=== PATIENT | female | born 1985 ===

== ENCOUNTER 2016-11-28 10:15 | Emergency (ER) | payer BC, MEDICAID, OTHER ==
[2016-11-28 10:16] VITALS: BMI 31.8
[2016-11-28 10:18] VITALS: BP 121/83; PULSE 76; RESP 18; TEMP 98.6; O2SAT 98
[2016-11-28] MEDS ORDERED: Naproxen 550 mg Tab PO STA (10:42)
--- NOTE | 2016-11-28 10:42 | C.PDOC ---
History Of Present Illness 30 yr old female presents to the ER with complaints of tooth ache in the right right upper molar for the past 3 days. Patient reports she has multiple cavities in the area and has not tried any medications for the pain. Patient denies fever, throat swelling, vomiting, neck pain, weakness or numbness. Time Seen by Provider: 11/28/16 10:33 Chief Complaint (Nursing): Dental Pain History Per: Patient History/Exam Limitations: no limitations Onset/Duration Of Symptoms: Days (3) Current Symptoms Are (Timing): Still Present Past Medical History Reviewed: Historical Data, Nursing Documentation, Vital Signs Vital Signs: Last Vital Signs Temp 98.6 F 11/28/16 10:18 Pulse 76 11/28/16 10:18 Resp 18 11/28/16 10:18 BP 121/83 11/28/16 10:18 Pulse Ox 98 11/28/16 10:55 - Medical History PMH: Anxiety Family History: States: No Known Family Hx - Social History Hx Alcohol Use: Yes Hx Substance Use: No Review Of Systems Except As Marked, All Systems Reviewed And Found Negative. Constitutional: Negative for: Fever ENT: Positive for: Other ((+) Right upper molar pain ). Negative for: Throat Swelling Gastrointestinal: Negative for: Vomiting Musculoskeletal: Negative for: Neck Pain Neurological: Negative for: Weakness, Numbness Physical Exam - Physical Exam Appears: Well, Non-toxic, No Acute Distress Skin: Warm, Dry, Other ((+) Moderate swelling to the right cheek. ) Head: Atraumatic, Normacephalic Oral Mucosa: Moist Teeth: Other ((+) Tenderness & Temporary fillings noted to the #2 and #3. ) Gingiva: Swelling (with purulent drainag bucal rt upper 2nd molor), Tender Throat: Normal, No Erythema, No Exudate Neck: Normal, Normal ROM, Supple Neurological/Psych: Oriented x3, Normal Speech, Normal Motor ED Course And Treatment O2 Sat by Pulse Oximetry: 98 Medical Decision Making Medical Decision Making: PLAN: * Amoxicillin PO * Naproxen PO dentist philip Disposition Counseled Patient/Family Regarding: Need For Followup - Disposition Disposition: HOME/ ROUTINE Disposition Time: 10:40 Condition: GOOD Additional Instructions: follow up with dentist PHILIP Prescriptions: Amoxicillin [Amoxil 500 mg Cap] 1 cap PO TID #21 cap Naproxen [Naprosyn] 1 tab PO BID PRN #25 tab PRN Reason: Pain Instructions: Dental Abscess (ED) - Clinical Impression Clinical Impression: Dental abscess - Scribe Statement The provider has reviewed the documentation as recorded by the Scribe Adry Stinson Provider Attestation: All medical record entries made by the Scribe were at my direction and personally dictated by me. I have reviewed the chart and agree that the record accurately reflects my personal performance of the history, physical exam, medical decision making, and the department course for this patient. I have also personally directed, reviewed, and agree with the discharge instructions and disposition.
[2016-11-28] MEDS ORDERED: Naproxen 550 mg Tab PO ONE (10:52)
== END 2016-11-28 11:27 | disposition home or self-care (01) ==
LOC: C.ER 10:15
DX: K04.7 Periapical abscess without sinus (principal)

== ENCOUNTER 2017-01-18 09:35 | Inpatient (IN) | payer OTHER ==
[2017-01-18 09:36] VITALS: BMI 31.8
[2017-01-18] MEDS ORDERED: Sodium Chloride 0.9% 1,000 ML IV STA (10:19)
[2017-01-18] MEDS ORDERED: Sodium Chloride 0.9% 1,000 ML ONE (10:29)
[2017-01-18 10:36] LABS: BASO # 0.1 K/uL (0.0-0.2); EOS # 0.1 K/uL (0.0-0.7); EOS % 0.8 % (0.0-4.0); LYMPH # 1.6 K/uL (1.0-4.3); LYMPH % 15.7 % (20.0-40.0); MEAN CELL VOLUME 94.7 fL (81.0-99.0); MEAN CORPUSCULAR HEMOGLOBIN 31.4 pg (27.0-31.0); MEAN CORPUSCULAR HGB CONC 33.1 g/dL (33.0-37.0); MONO % 9.8 % (0.0-10.0); NEUT # 7.6 K/uL (1.8-7.0); NEUT % 72.7 % (50.0-75.0); NRBC % 0.1 % (0.0-2.0); RBC 4.15 Mil/uL (3.80-5.20); RED CELL DISTRIBUTION WIDTH 13.8 % (11.5-14.5); WHITE BLOOD COUNT 10.5 K/uL (4.8-10.8)
[2017-01-18 10:44] LABS: ALB/GLOB RATIO 1.1 (1.0-2.1); ALT/SGPT 90 U/L (9-52); AST/SGOT 142 U/L (14-36); BLOOD UREA NITROGEN 5 mg/dL (7-17); GFR AFRICAN-AMERICAN > 60; GFR NON-AFRICAN AMERICAN > 60; LIPASE 113 U/L (23-300)
[2017-01-18 10:45] LABS: CALCIUM 9.2 mg/dl (8.6-10.4)
[2017-01-18] MEDS ORDERED: POTASSIUM CHLORIDE IV ONE (11:30)
--- NOTE | 2017-01-18 11:41 | C.PDOC ---
History Of Present Illness 31-year-old female, PMHx includes Anxiety and EtOH Abuse, presents to the emergency department with complaints of abdominal pain associated with non- bloody/non-bilious vomiting since last night. Denies fevers, chills, symptoms , change in bowel habits, or any other associated symptoms. No other complaints at this time. Time Seen by Provider: 01/18/17 09:53 Chief Complaint (Nursing): Abdominal Pain History Per: Patient History/Exam Limitations: no limitations Onset/Duration Of Symptoms: Days Current Symptoms Are (Timing): Still Present Severity: Moderate Past Medical History Reviewed: Historical Data, Nursing Documentation, Vital Signs Vital Signs: Last Vital Signs Temp 97.4 F L 01/18/17 15:44 Pulse 51 L 01/18/17 18:17 Resp 20 01/18/17 18:17 BP 113/73 01/18/17 18:17 Pulse Ox 100 01/18/17 18:45 - Medical History PMH: Anxiety Family History: States: No Known Family Hx - Social History Hx Alcohol Use: Yes Hx Substance Use: No - Immunization History Hx Tetanus Toxoid Vaccination: No Hx Influenza Vaccination: No Hx Pneumococcal Vaccination: No Review Of Systems Except As Marked, All Systems Reviewed And Found Negative. Constitutional: Negative for: Fever, Chills Cardiovascular: Negative for: Chest Pain, Palpitations Gastrointestinal: Positive for: Nausea, Vomiting, Abdominal Pain. Negative for : Diarrhea, Constipation Genitourinary: Negative for: Dysuria, Frequency, Vaginal Discharge, Vaginal Bleeding Musculoskeletal: Negative for: Back Pain Physical Exam - Physical Exam Appears: Non-toxic, No Acute Distress Skin: Warm, Dry, No Rash Head: Atraumatic, Normacephalic Eye(s): bilateral: Normal Inspection, PERRL, EOMI Nose: Normal Oral Mucosa: Moist Lips: Normal Appearing Neck: Normal ROM Cardiovascular: Rhythm Regular, No Murmur Respiratory: Normal Breath Sounds, No Accessory Muscle Use Gastrointestinal/Abdominal: Soft, Tenderness (RUQ), No Guarding, No Rebound Extremity: Normal ROM Neurological/Psych: Oriented x3, Normal Speech ED Course And Treatment - Laboratory Results Result Diagrams: 01/18/17 10:28 01/18/17 10:28 O2 Sat by Pulse Oximetry: 100 - CT Scan/US Abd & Pelvis CT Other Rad Studies (CT/US): Read By Radiologist, Radiology Report Reviewed CT/US Interpretation: FINDINGS: LOWER THORAX: There is patchy ground-glass attenuation in both lungs. LIVER: The liver is enlarged and there is diffuse low-attenuation. No gross lesion or ductal dilatation. GALLBLADDER AND BILE DUCTS: There are no calcified gallstones. PANCREAS: The pancreas is normal in size and there is homogeneous enhancement without ductal dilatation or focal mass. SPLEEN: The spleen is normal in size without focal lesion. ADRENALS: Both adrenal glands are normal in size without discrete nodule. KIDNEYS AND URETERS: Both kidneys are normal in size and there is homogeneous enhancement without hydronephrosis or mass. VASCULATURE: The aorta is normal in caliber. BOWEL: The small bowel loops are normal in caliber. There is apparent mild diffuse circumferential mural thickening in the colon. No bowel dilatation or obstruction. There are occasional diverticula in the colon. APPENDIX: Normal appendix. PERITONEUM: No free fluid. No free air. LYMPH NODES: No enlarged lymph nodes. BLADDER: Normal in appearance. REPRODUCTIVE: The uterus is normal in size. No adnexal masses. BONES: No acute fracture. Within normal limits for the patient's age. OTHER FINDINGS: None. IMPRESSION: 1. Evaluation of the colon is limited in the absence of oral contrast. Apparent mild diffuse circumferential mural thickening in the colon is nonspecific and could be related to underdistention however acute nonspecific infectious/ inflammatory colitis is also a differential consideration. No evidence of bowel obstruction. 2. Mild hepatomegaly and hepatic steatosis. 3. Patchy ground-glass attenuation in the lung bases is also nonspecific and could be related to nonspecific infection/inflammation. Abdomen ultrasound Other Rad Studies (CT/US): Read By Radiologist, Radiology Report Reviewed CT/US Interpretation: FINDINGS: LIVER: Measures 19.7 cm in length. Echogenic liver may be seen in setting of hepatic parenchymal disease or fatty infiltration. No focal hepatic mass identified. The main portal vein appears patent with normal directional flow. No intrahepatic bile duct dilatation. GALLBLADDER: No gallstones. No gallbladder wall thickening or pericholecystic edema. Negative sonographic Coker's sign as assessed by the telehealth nurse educator. COMMON BILE DUCT: Measures 4 mm. PANCREAS: Not well-visualized. RIGHT KIDNEY : Measures 10.8 x 3.8 x 4.7 cm. No obstructing calculus or hydronephrosis identified. AORTA: Limited visualization appears grossly unremarkable. IVC: Limited visualization appears grossly unremarkable. OTHER FINDINGS: None . IMPRESSION: Hepatomegaly. Echogenic liver may be seen in setting of hepatic parenchymal disease or fatty infiltration. Progress Note: Patient was given multiple doses of pain medications, and Zofran. Patient states that her symptoms still persist. Pt's potassium level was found to be low, and was given potassium IV, and ordered blood work again. Repeat blood work shows potassium level improved to 3.3 Patient was also found to be bradycardic. EKG was ordered. Heart rate improved to 52. Pt still states that she has nausea, and abdominal pain. Spoke with Dr. Tan who accepted patient for observation. Disposition - Disposition Disposition: HOSPITALIZED Disposition Time: 18:48 Condition: FAIR - Clinical Impression Clinical Impression: Abdominal pain, Vomiting, Hypokalemia, Bradycardia - PA / CULTURAL CENTRE MANAGER / Resident Statement MD/DO has reviewed & agrees with the documentation as recorded. - Scribe Statement The provider has reviewed the documentation as recorded by the Scribe (Veronica Alston) All medical record entries made by the Scribe were at my direction and personally dictated by me. I have reviewed the chart and agree that the record accurately reflects my personal performance of the history, physical exam, medical decision making, and the department course for this patient. I have also personally directed, reviewed, and agree with the discharge instructions and disposition. Decision To Admit - Pt Status Changed To: Hospital Disposition Of: Observation - . Bed Request Type: Regular Admitting Physician: Major Tan Patient Diagnosis: Abdominal pain, Vomiting, Hypokalemia, Bradycardia
[2017-01-18] MEDS ORDERED: Morphine 4 MG/ML VIAL ONE ×2 (11:53→17:09)
--- NOTE | 2017-01-18 12:45 | US ---
HISTORY: upper abd pain/vomiting COMPARISON: None available. TECHNIQUE: Sonographic evaluation of the right upper quadrant of the abdomen. FINDINGS: LIVER: Measures 19.7 cm in length. Echogenic liver may be seen in setting of hepatic parenchymal disease or fatty infiltration. No focal hepatic mass identified. The main portal vein appears patent with normal directional flow. No intrahepatic bile duct dilatation. GALLBLADDER: No gallstones. No gallbladder wall thickening or pericholecystic edema. Negative sonographic Coker's sign as assessed by the cook pickled meat. COMMON BILE DUCT: Measures 4 mm. PANCREAS: Not well-visualized. RIGHT KIDNEY: Measures 10.8 x 3.8 x 4.7 cm. No obstructing calculus or hydronephrosis identified. AORTA: Limited visualization appears grossly unremarkable. IVC: Limited visualization appears grossly unremarkable. OTHER FINDINGS: None . IMPRESSION: Hepatomegaly. Echogenic liver may be seen in setting of hepatic parenchymal disease or fatty infiltration.
[2017-01-18 12:53] LABS: HCG,QUALITATIVE URINE NEGATIVE (NEGATIVE)
[2017-01-18 12:58] LABS: SQUAMOUS EPITHIAL 1 /hpf (0-5); URINE BILIRUBIN NEGATIVE (NEGATIVE); URINE BLOOD NEGATIVE (NEGATIVE); URINE CLARITY Clear (Clear); URINE COLOR Yellow (YELLOW); URINE GLUCOSE (UA) 1+ mg/dL (Normal); URINE LEUKOCYTE ESTERASE NEG Leu/uL (Negative); URINE NITRATE NEGATIVE (NEGATIVE); URINE PROTEIN NEGATIVE (NEGATIVE); URINE UROBILINOGEN NORMAL mg/dL (0.2-1.0)
[2017-01-18 13:07] LABS: BENZODIAZEPINES, UR NEGATIVE (NEGATIVE)
[2017-01-18 13:09] LABS: BARBITURATES, UR NEGATIVE (NEGATIVE)
[2017-01-18] MEDS ORDERED: Iohexol 240 (50 ml) PO STA (13:21)
[2017-01-18 13:22] LABS: OPIATES, UR POSITIVE (NEGATIVE); PHENCYCLIDINE, UR POSITIVE (NEGATIVE)
[2017-01-18] MEDS ORDERED: Iohexol 240 (50 ml) ONE (14:16)
[2017-01-18] MEDS ORDERED: Iohexol 300 100 ML IJ ONE (17:00)
--- NOTE | 2017-01-18 18:05 | CT ---
PROCEDURE: CT Abdomen and Pelvis with contrast HISTORY: right abdominal pain/vomiting/hypokalemia COMPARISON: None. TECHNIQUE: CT scan of the abdomen and pelvis was performed after administration of intravenous contrast. Oral contrast was administered. Coronal and sagittal reformatted images were obtained. Contrast dose: 100 mL Omnipaque 300 Radiation dose: Total exam DLP = 1039.22 mGy-cm. This CT exam was performed using one or more of the following dose reduction techniques: Automated exposure control, adjustment of the mA and/or kV according to patient size, and/or use of iterative reconstruction technique. FINDINGS: LOWER THORAX: There is patchy ground-glass attenuation in both lungs. LIVER: The liver is enlarged and there is diffuse low-attenuation. No gross lesion or ductal dilatation. GALLBLADDER AND BILE DUCTS: There are no calcified gallstones. PANCREAS: The pancreas is normal in size and there is homogeneous enhancement without ductal dilatation or focal mass. SPLEEN: The spleen is normal in size without focal lesion. ADRENALS: Both adrenal glands are normal in size without discrete nodule. KIDNEYS AND URETERS: Both kidneys are normal in size and there is homogeneous enhancement without hydronephrosis or mass. VASCULATURE: The aorta is normal in caliber. BOWEL: The small bowel loops are normal in caliber. There is apparent mild diffuse circumferential mural thickening in the colon. No bowel dilatation or obstruction. There are occasional diverticula in the colon. APPENDIX: Normal appendix. PERITONEUM: No free fluid. No free air. LYMPH NODES: No enlarged lymph nodes. BLADDER: Normal in appearance. REPRODUCTIVE: The uterus is normal in size. No adnexal masses. BONES: No acute fracture. Within normal limits for the patient's age. OTHER FINDINGS: None. IMPRESSION: 1. Evaluation of the colon is limited in the absence of oral contrast. Apparent mild diffuse circumferential mural thickening in the colon is nonspecific and could be related to underdistention however acute nonspecific infectious/inflammatory colitis is also a differential consideration. No evidence of bowel obstruction. 2. Mild hepatomegaly and hepatic steatosis. 3. Patchy ground-glass attenuation in the lung bases is also nonspecific and could be related to nonspecific infection/inflammation.
[2017-01-18 18:26] LABS: VENOUS BLOOD GAS BASE EXCESS 3.5 mmol/L (0.0-2.0); VENOUS BLOOD GAS PCO2 57 mmHg (40-60); VENOUS BLOOD GAS PO2 19 mm/Hg (30-55); VENOUS BLOOD PH 7.34 (7.32-7.43)
--- NOTE | 2017-01-18 19:03 | CP.PCM.HP ---
<Vicky Espinoza - Last Filed: 01/18/17 20:50> History of Present Illness - History of Present Illness History of Present Illness: Medicine Note CC: Abdominal pain, nausea and vomiting HPI: 31 F with PMHx of pancreatitis and IBS, presents to ED with abdominal pain , nausea and vomiting x 2 days. Patient reports she has IBS and her normal bowel movements are loose stools. Patient reports she started have right sided abdominal pain that feels sharp in nature and does not radiate. She has unable to tolerate anything by mouth. She was hospitalized a few weeks ago for similar symptoms. Admitted to abdominal pain, n/v/ and diarrhea. Denied any sick contacts, recent travel. Denied fever, chills, headache, blurry vision chest pain, SOB, or urinary symptoms. PMHx: pancreatitis and IBS (diagnosed 2010) PSHx: Denied Meds: Denied All: NKDA SHx: Has been smoking 5-10 cigarrettes for 15 years, drinks one 6 pack of beers 3-4 times a week, denied drug use (despite UDS) FHx: Mother: DM Father: Hx CABG PMD: Denied Present on Admission - Present on Admission Any Indicators Present on Admission: No Review of Systems - Constitutional Constitutional: absent: Excessive Sweating - EENT Eyes: absent: Loss of Vision Ears: absent: Dizziness Nose/Mouth/Throat: absent: Neck Pain - Cardiovascular Cardiovascular: absent: Chest Pain, Chest Pain at Rest - Respiratory Respiratory: absent: Cough, Dyspnea - Gastrointestinal Gastrointestinal: Abdominal Pain, Diarrhea, Nausea, Vomiting - Genitourinary Genitourinary: absent: Dysuria, Hematuria - Musculoskeletal Musculoskeletal: absent: Back Pain, Tingling - Integumentary Integumentary: absent: Sores, Striae - Neurological Neurological: absent: Syncope, Weakness - Endocrine Endocrine: absent: Polydipsia, Polyphagia Past Patient History - Infectious Disease Hx of Infectious Diseases: None - Past Medical History & Family History Past Medical History?: No - Past Social History Smoking Status: Light Smoker < 10 Cigarettes Daily - CARDIAC Hx Hypertension: No - PULMONARY Hx Tuberculosis: No - NEUROLOGICAL Hx Seizures: No - HEMATOLOGICAL/ONCOLOGICAL Hx Human Immunodeficiency Virus (HIV): No - MUSCULOSKELETAL/RHEUMATOLOGICAL Hx Falls: No - GENITOURINARY/GYNECOLOGICAL Hx Sexually Transmitted Disorders: No - PSYCHIATRIC Hx Anxiety: Yes Hx Substance Use: No - SURGICAL HISTORY Hx Surgeries: No - ANESTHESIA Hx Anesthesia: No Meds Allergies/Adverse Reactions: Allergies Allergy/AdvReac Type Severity Reaction Status Date / Time No Known Allergies Allergy Verified 01/18/17 09:47 Physical Exam - Constitutional Appears: No Acute Distress - Head Exam Head Exam: NORMAL INSPECTION, NORMOCEPHALIC - Eye Exam Eye Exam: EOMI, Normal appearance, PERRL Pupil Exam: NORMAL ACCOMODATION - ENT Exam ENT Exam: Mucous Membranes Moist - Neck Exam Neck exam: Positive for: Normal Inspection - Respiratory Exam Respiratory Exam: Clear to Auscultation Bilateral, NORMAL BREATHING PATTERN. absent: Wheezes - Cardiovascular Exam Cardiovascular Exam: REGULAR RHYTHM, RRR - GI/Abdominal Exam GI & Abdominal Exam: Normal Bowel Sounds, Soft, Tenderness (TTP right sided ). absent: Distended - Extremities Exam Extremities exam: Positive for: normal inspection. Negative for: pedal edema, tenderness, pedal pulses present - Neurological Exam Neurological exam: Alert, CN II-XII Intact, Oriented x3 - Skin Skin Exam: Dry, Intact, Normal Color, Warm Results - Vital Signs Recent Vital Signs: Last Vital Signs Temp 97.4 F L 01/18/17 15:44 Pulse 51 L 01/18/17 18:17 Resp 20 01/18/17 18:17 BP 113/73 01/18/17 18:17 Pulse Ox 100 01/18/17 18:49 - Labs Result Diagrams: 01/18/17 10:28 01/18/17 10:28 Assessment & Plan - Assessment and Plan (Free Text) Assessment: 31 F with PMHx of pancreatitis and IBS, presents to ED with abdominal pain, nausea and vomiting x 2 days. Plan: Abdominal Pain * Afebrile, no leukocytosis * CT AB & Pelvis w/ IV & PO contrast: 1. Evaluation of the colon is limited in the absence of oral contrast. Apparent mild diffuse circumferential mural thickening in the colon is nonspecific and could be related to underdistention however acute nonspecific infectious/inflammatory colitis is also a differential consideration. No evidence of bowel obstruction. 2. Mild hepatomegaly and hepatic steatosis. 3. Patchy ground-glass attenuation in the lung bases is also nonspecific and could be related to nonspecific infection/ inflammation. * Abdominal US: Hepatomegaly. Echogenic liver may be seen in setting of hepatic parenchymal disease or fatty infiltration. * Hx of IBS * Cipro and Flagyl started 01/18/17 * Gastro Consult: Dr. Otero- help appreciated * Toradol PRN and Morphine PRN for pain control Bradycardia * HR - 50s in ED * Started on IVF-NS, responded. HR -60s * Monitored on Telemetry Hypokalemia * 2.9 on admission * Give 40meq of K in the ED * Started on NS with Potassium supplement @ 100cc/hr * F/U am labs Hx IBS Tobacco Use Disorder * Smoking Cessation * Nicotine patch Drug Use Disorder * + UDS- Opiates, Cocaine, Cannabinoids Alcohol Use Disorder Prophylactic Measures * GI PPX: Protonix 40mg PO daily * DVT PPX: SCDs, Lovenox 40 SC daily * NPO * Zofran PRN DW Olga Marion DO, PGY-1 <Goran Abraham - Last Filed: 01/19/17 05:06> Results - Vital Signs Recent Vital Signs: Last Vital Signs Temp 98.4 F 01/19/17 04:00 Pulse 73 01/19/17 04:00 Resp 20 01/19/17 04:00 BP 110/73 01/19/17 04:00 Pulse Ox 96 01/18/17 23:40 - Labs Result Diagrams: 01/18/17 10:28 01/18/17 10:28 Assessment & Plan - Date & Time Date: 01/19/17 (I have seen and examined the patient. I agree with the findings and plan of care as documented by Dr. Espinoza. Patient with abdominal pain. CT shows colitis. GI consult. Symptomatic treatment. IVF. Also with bradycardia. Monitor on tele. Monitor for acute changes.) Time: 05:05 Attending/Attestation - Attestation I have personally seen and examined this patient.: Yes I have fully participated in the care of the patient.: Yes I have reviewed all pertinent clinical information: Yes
[2017-01-18] MEDS: Ciprofloxacin 200mg/100ml D5W 100 ML IVPB SCH (21:45)
[2017-01-18] MEDS: metroNIDAZOLE IV 500 mg/100 ml 500 MG/100 ML BAG IVPB SCH (23:28)
[2017-01-19] MEDS: metroNIDAZOLE IV 500 mg/100 ml 500 MG/100 ML BAG IVPB SCH ×3 (06:00→23:25)
[2017-01-19 07:49] LABS: BASO # 0.1 K/uL (0.0-0.2); BASO % 0.6 % (0.0-2.0); EOS # 0.2 K/uL (0.0-0.7); EOS % 2.1 % (0.0-4.0); HEMOGLOBIN 12.4 g/dL (11.0-16.0); LYMPH # 1.7 K/uL (1.0-4.3); LYMPH % 18.2 % (20.0-40.0); MEAN CELL VOLUME 95.8 fL (81.0-99.0); MEAN CORPUSCULAR HEMOGLOBIN 31.7 pg (27.0-31.0); MEAN CORPUSCULAR HGB CONC 33.1 g/dL (33.0-37.0); MEAN PLATELET VOLUME 10.4 fL (7.2-11.7); MONO # 0.7 K/uL (0.0-0.8); MONO % 7.2 % (0.0-10.0); NEUT # 6.5 K/uL (1.8-7.0); NEUT % 71.9 % (50.0-75.0); NRBC % 0.1 % (0.0-2.0); RBC 3.91 Mil/uL (3.80-5.20); RED CELL DISTRIBUTION WIDTH 13.8 % (11.5-14.5); WHITE BLOOD COUNT 9.1 K/uL (4.8-10.8)
[2017-01-19 08:03] LABS: ALBUMIN 3.3 g/dL (3.5-5.0)
[2017-01-19 08:06] LABS: AST/SGOT 115 U/L (14-36); GFR AFRICAN-AMERICAN > 60; GFR NON-AFRICAN AMERICAN > 60
[2017-01-19 08:07] LABS: ALT/SGPT 72 U/L (9-52); BLOOD UREA NITROGEN 6 mg/dL (7-17); CALCIUM 8.4 mg/dl (8.6-10.4); MAGNESIUM 1.6 mg/dL (1.6-2.3)
[2017-01-19] MEDS: Ciprofloxacin 200mg/100ml D5W 100 ML IVPB SCH ×2 (09:43→21:46)
[2017-01-19] MEDS: Pantoprazole 40 mg EC Tab PO SCH (09:44)
[2017-01-19] MEDS: Enoxaparin 40 mg Syringe SC SCH (09:44)
[2017-01-19] MEDS ORDERED: Potassium Chloride 20 mEq ER Tab PO ONE (10:13)
[2017-01-19] MEDS ORDERED: Potassium Chloride 20 mEq/15 ml LIQ UD PO ONE (11:59)
[2017-01-19] MEDS: Sodium Chloride 0.9% 1,000 ML IV SCH ×2 (12:13→21:55)
--- NOTE | 2017-01-19 14:13 | CP.PCM.CON ---
History of Present Illness - History of Present Illness History of Present Illness: ASked to see pt for GI Service consult for vomiting. Fiancee is present. Pt reports 2 days of vague abdom pain, body pain, and nausea and vomiting,. Stools are small amount- soft. Sl fever,.PMH: Pancreatitis due to etoh, and IBS. CT-shows possible colitis. Review of Systems - Constitutional Constitutional: Fever, Headache. absent: Lethargy, Weight Loss - EENT Eyes: absent: Diplopia Nose/Mouth/Throat: absent: Dysphagia - Cardiovascular Cardiovascular: absent: Dyspnea, Edema - Respiratory Respiratory: absent: Hemoptysis, Wheezing - Gastrointestinal Gastrointestinal: Abdominal Pain, Diarrhea, Nausea, Vomiting. absent: Hematemesis, Hematochezia, Melena - Musculoskeletal Musculoskeletal: absent: Muscle Cramps, Muscle Weakness, Myalgias - Integumentary Integumentary: absent: Rash, Jaundice - Neurological Neurological: absent: Convulsions, Focal Weakness Past Patient History - Infectious Disease Hx of Infectious Diseases: None - Past Medical History & Family History Past Medical History?: No - Past Social History Smoking Status: Light Smoker < 10 Cigarettes Daily - CARDIAC Hx Hypertension: No - PULMONARY Hx Tuberculosis: No - NEUROLOGICAL Hx Seizures: No - HEMATOLOGICAL/ONCOLOGICAL Hx Human Immunodeficiency Virus (HIV): No - MUSCULOSKELETAL/RHEUMATOLOGICAL Hx Falls: No - GENITOURINARY/GYNECOLOGICAL Hx Sexually Transmitted Disorders: No - PSYCHIATRIC Hx Substance Use: Yes - SURGICAL HISTORY Hx Surgeries: No Other/Comment: .2007 - ANESTHESIA Hx Anesthesia: Yes Hx Anesthesia Reactions: No Hx Malignant Hyperthermia: No Has any member of the family had a problem w/ anesthesia?: No Meds Allergies/Adverse Reactions: Allergies Allergy/AdvReac Type Severity Reaction Status Date / Time No Known Allergies Allergy Verified 01/18/17 09:47 - Medications Medications: Current Medications Enoxaparin Sodium (Lovenox) 40 mg SC DAILY [facility] Last Admin: 01/19/17 09:44 Dose: 40 mg Potassium Chloride 40 meq/ (Sodium Chloride) 1,020 mls @ 100 mls/hr IV .[id number] [facility] Last Admin: 01/18/17 20:15 Dose: 100 mls/hr Ciprofloxacin (Cipro 200mg/100ml D5w) 100 mls @ 67 mls/hr IVPB Q12H [facility] Last Admin: 01/19/17 09:43 Dose: 67 mls/hr Metronidazole (Flagyl) 500 mg in 100 mls @ 100 mls/hr IVPB Q8 [facility] Last Admin: 01/19/17 06:00 Dose: 100 mls/hr Sodium Chloride (Sodium Chloride 0.9%) 1,000 mls @ 100 mls/hr IV .Q10H [facility] Last Admin: 01/19/17 12:13 Dose: 100 mls/hr Potassium Chloride (Potassium Chloride 20 Meq/100 Ml) 20 meq in 100 mls @ 50 mls/hr IVPB ONCE ONE Stop: 01/19/17 14:59 Last Admin: 01/19/17 12:12 Dose: 50 mls/hr Ketorolac Tromethamine (Toradol) 30 mg IVP Q6 PRN PRN Reason: Pain, moderate (4-7) Morphine Sulfate (Morphine) 1 mg IVP Q4H PRN PRN Reason: Pain, severe (8-10) Last Admin: 01/19/17 11:03 Dose: 1 mg Nicotine (Nicoderm Cq) 1 patch TD DAILY [facility] Last Admin: 01/19/17 09:45 Dose: 1 patch Ondansetron HCl (Zofran Inj) 4 mg IVP Q6 PRN PRN Reason: Nausea/Vomiting Last Admin: 01/19/17 13:48 Dose: 4 mg Pantoprazole Sodium (Protonix Ec Tab) 40 mg PO DAILY [facility] Last Admin: 01/19/17 09:44 Dose: 40 mg Pneumococcal Polyvalent Vaccine (Pneumovax 23 Vaccine) 0.5 ml IM .ONCE ONE Stop: 01/21/17 10:01 Physical Exam - Constitutional Appears: Non-toxic - Neck Exam Neck exam: Negative for: Tenderness - Respiratory Exam Respiratory Exam: Clear to Auscultation Bilateral - Cardiovascular Exam Cardiovascular Exam: Bradycardia - GI/Abdominal Exam GI & Abdominal Exam: Normal Bowel Sounds, Soft, Tenderness. absent: Distended, Guarding, Rebound, Rigid Additional comments: VAriable tenderness throughot abdomen. Anywhere that is touched on abdomen and upper chest is tender - Extremities Exam Extremities exam: Negative for: pedal edema - Neurological Exam Neurological exam: Alert, Oriented x3 Results - Vital Signs Recent Vital Signs: Last Vital Signs Temp 98.3 F 01/19/17 07:00 Pulse 56 L 01/19/17 07:00 Resp 16 01/19/17 07:00 BP 117/63 01/19/17 07:00 Pulse Ox 94 L 01/19/17 07:00 - Labs Result Diagrams: 01/19/17 07:40 01/19/17 07:40 Labs: Laboratory Results - last 24 hr 01/19/17 01/19/17 07:40 07:40 WBC 9.1 RBC 3.91 Hgb 12.4 Hct 37.5 MCV 95.8 MCH 31.7 H MCHC 33.1 RDW 13.8 Plt Count 196 MPV 10.4 Neut % (Auto) 71.9 Lymph % (Auto) 18.2 L Wilkin % (Auto) 7.2 Eos % (Auto) 2.1 Baso % (Auto) 0.6 Neut # 6.5 Lymph # 1.7 Wilkin # 0.7 Eos # 0.2 Baso # 0.1 Sodium 134 Potassium 3.3 L Chloride 98 Carbon Dioxide 26 Anion Gap 13 BUN 6 L Creatinine 0.6 L Est GFR ( Amer) > 60 Est GFR (Non-Af Amer) > 60 Random Glucose 97 Calcium 8.4 L Phosphorus 3.0 Magnesium 1.6 Total Bilirubin 0.9 AST 115 H ALT 72 H Alkaline Phosphatase 102 Total Protein 6.6 Albumin 3.3 L Globulin 3.3 Albumin/Globulin Ratio 1.0 Assessment & Plan (1) Irritable bowel syndrome Assessment and Plan: h/o Status: Acute (2) Abdominal pain Assessment and Plan: VAriable. Consider gastrtis. Ct shows possible colitis- but i doubt is real colitis. Status: Acute (3) Bradycardia Status: Acute (4) Hypokalemia Status: Acute (5) Vomiting Assessment and Plan: ETOH, gastritis, IBS. Consider psych, gastroenteritis. CT and sono abd reviewed. REC: PPI. Status: Acute (6) Alcohol abuse Status: Acute
--- NOTE | 2017-01-19 17:08 | CARD ---
APPROVED REPORT EKG Measurement Heart [id number] NM [id number] <Conclusion> Sinus bradycardia Otherwise normal ECG
--- NOTE | 2017-01-19 18:13 | CP.PCM.PN ---
<Dheeraj Bran Shady - Last Filed: 01/19/17 20:30> Subjective - Date & Time of Evaluation Date of Evaluation: 01/19/17 Time of Evaluation: 09:25 - Subjective Subjective: Medicine Note (PGY 1) : Dr. Tan's service Patient was seen and examined at bedside. Patient was rest comfortable in bed. Patient states that she is doing better. Patient continues to report nausea, right lower abdominal pain and vomiting but denies chest pain, sob, abd pain, diarrhea, fever and chills. Objective - Vital Signs/Intake and Output Vital Signs (last 24 hours): Temp Pulse Resp BP Pulse Ox 97.5 F L 56 L 18 118/63 98 01/19/17 15:30 01/19/17 15:30 01/19/17 15:30 01/19/17 15:30 01/19/17 15:30 Intake and Output: 01/19/17 01/19/17 06:59 18:59 Intake Total 725 1050 Balance 725 1050 - Medications Medications: Current Medications Enoxaparin Sodium (Lovenox) 40 mg SC DAILY [facility] Last Admin: 01/19/17 09:44 Dose: 40 mg Ciprofloxacin (Cipro 200mg/100ml D5w) 100 mls @ 67 mls/hr IVPB Q12H [facility] Last Admin: 01/19/17 09:43 Dose: 67 mls/hr Metronidazole (Flagyl) 500 mg in 100 mls @ 100 mls/hr IVPB Q8 [facility] Last Admin: 01/19/17 14:40 Dose: 100 mls/hr Sodium Chloride (Sodium Chloride 0.9%) 1,000 mls @ 100 mls/hr IV .Q10H [facility] Last Admin: 01/19/17 12:13 Dose: 100 mls/hr Ketorolac Tromethamine (Toradol) 30 mg IVP Q6 PRN PRN Reason: Pain, moderate (4-7) Morphine Sulfate (Morphine) 1 mg IVP Q4H PRN PRN Reason: Pain, severe (8-10) Last Admin: 01/19/17 16:07 Dose: 1 mg Nicotine (Nicoderm Cq) 1 patch TD DAILY [facility] Last Admin: 01/19/17 09:45 Dose: 1 patch Ondansetron HCl (Zofran Inj) 4 mg IVP Q6 PRN PRN Reason: Nausea/Vomiting Last Admin: 01/19/17 13:48 Dose: 4 mg Pantoprazole Sodium (Protonix Ec Tab) 40 mg PO DAILY [facility] Last Admin: 01/19/17 09:44 Dose: 40 mg Pneumococcal Polyvalent Vaccine (Pneumovax 23 Vaccine) 0.5 ml IM .ONCE ONE Stop: 01/21/17 10:01 - Labs Labs: 01/19/17 07:40 01/19/17 07:40 - Constitutional Appears: Well, No Acute Distress - Head Exam Head Exam: NORMAL INSPECTION, NORMOCEPHALIC - Eye Exam Eye Exam: EOMI, Normal appearance - ENT Exam ENT Exam: Mucous Membranes Moist, Normal Exam - Respiratory Exam Respiratory Exam: Clear to Ausculation Bilateral, NORMAL BREATHING PATTERN - Cardiovascular Exam Cardiovascular Exam: REGULAR RHYTHM, +S1, +S2 - GI/Abdominal Exam GI & Abdominal Exam: Soft, Tenderness (right lower quadrant ), Normal Bowel Sounds - Extremities Exam Extremities Exam: Normal Capillary Refill, Normal Inspection - Neurological Exam Neurological Exam: Alert, Awake, Oriented x3 - Psychiatric Exam Psychiatric exam: Normal Affect, Normal Mood - Skin Skin Exam: Dry, Normal Color, Warm Assessment and Plan (1) Abdominal pain Assessment & Plan: Improving Afebrile, no leukocytosis * NPO expect for medicine until symptoms are under control * hx of IBS * Cipro 200mg IV Q12H and Flagyl 500MG IVPB Q8 started on 01/18/17 * Toradol 30mg IV Q6 PRN and Morphine 1mg IVPB q4h PRN for pain control * NS @100mls/hr * CT AB & Pelvis w/ IV & PO contrast: 1. Evaluation of the colon is limited in the absence of oral contrast. Apparent mild diffuse circumferential mural thickening in the colon is nonspecific and could be related to underdistention however acute nonspecific infectious/inflammatory colitis is also a differential consideration. No evidence of bowel obstruction. 2. Mild hepatomegaly and hepatic steatosis. 3. Patchy ground-glass attenuation in the lung bases is also nonspecific and could be related to nonspecific infection/ inflammation. * Abdominal US: Hepatomegaly. Echogenic liver may be seen in setting of hepatic parenchymal disease or fatty infiltration. GI Consult: Dr. Otero ---> help appreciated Status: Acute (2) Hypokalemia Assessment & Plan: K+ * 2.9 on admission, 3.3 (01/19/17) * Give 40meq of K in the ED * Started on NS with Potassium supplement @ 100cc/hr * Given KCl 20meq oral solution once and IVPB Once (01/19/17) * F/U am labs for potassium levels Status: Acute (3) Vomiting Assessment & Plan: Resolving Zofran 4mg IVP Q6 PRN Status: Acute (4) Bradycardia Assessment & Plan: Heart Rate * Asymptomatic * 50s in ED, 56 (01/29/17) * NS @ 100mls/hr * Caution with pain medication (Morphine) * Monitored on Telemetry Status: Acute (5) History of irritable bowel syndrome Assessment & Plan: GI consult (Dr. Otero) ---> Help appreciated * f/u recommendations Status: Chronic (6) Tobacco use disorder Assessment & Plan: * Smoking Cessation * Nicotine patch Status: Acute (7) Polysubstance abuse Assessment & Plan: Psychiatry Consult ( Dr. Luna)---> Help appreciated UDS : Positive for opiates, PCP, cocaine metabolites and cannabinoids Status: Chronic (8) Prophylactic measure Assessment & Plan: GI PPX: Protonix 40mg PO daily DVT PPX: SCDs, Lovenox 40 SC daily Status: Acute <Major Tan M - Last Filed: 01/20/17 15:43> Objective - Vital Signs/Intake and Output Vital Signs (last 24 hours): Temp Pulse Resp BP Pulse Ox 97.7 F 68 18 129/87 98 01/20/17 15:37 01/20/17 15:37 01/20/17 15:37 01/20/17 15:37 01/20/17 15:37 Intake and Output: 01/20/17 01/20/17 06:59 18:59 Intake Total 2020 Balance 2020 - Medications Medications: Current Medications Enoxaparin Sodium (Lovenox) 40 mg SC DAILY [facility] Last Admin: 01/20/17 10:12 Dose: 40 mg Sodium Chloride (Sodium Chloride 0.9%) 1,000 mls @ 100 mls/hr IV .Q10H [facility] Last Admin: 01/20/17 08:51 Dose: 100 mls/hr Ketorolac Tromethamine (Toradol) 30 mg IVP Q6 PRN PRN Reason: Pain, moderate (4-7) Morphine Sulfate (Morphine) 1 mg IVP Q4H PRN PRN Reason: Pain, severe (8-10) Last Admin: 01/20/17 10:13 Dose: 1 mg Nicotine (Nicoderm Cq) 1 patch TD DAILY [facility] Last Admin: 01/20/17 10:13 Dose: 1 patch Ondansetron HCl (Zofran Inj) 4 mg IVP Q6 PRN PRN Reason: Nausea/Vomiting Last Admin: 01/20/17 10:13 Dose: 4 mg Pantoprazole Sodium (Protonix Ec Tab) 40 mg PO DAILY [facility] Last Admin: 01/20/17 10:13 Dose: 40 mg Pneumococcal Polyvalent Vaccine (Pneumovax 23 Vaccine) 0.5 ml IM .ONCE ONE Stop: 01/21/17 10:01 - Labs Labs: 01/19/17 07:40 01/19/17 07:40 Attending/Attestation - Attestation I have personally seen and examined this patient.: Yes I have fully participated in the care of the patient.: Yes I have reviewed all pertinent clinical information, including history, physical exam and plan: Yes Notes (Text): 01/20/17 15:43 Patient was seen and examined at bedside with the resident Patient's abdominal pain is improving We will start the patient clear liquid diet Awaiting GI recommendations I discussed the plan of care with the resident and agree with the assessment plan by the resident.
[2017-01-20] MEDS: metroNIDAZOLE IV 500 mg/100 ml 500 MG/100 ML BAG IVPB SCH ×2 (05:20→13:54)
--- NOTE | 2017-01-20 07:40 | CP.PCM.PN ---
<Yecenia Benítez - Last Filed: 01/20/17 07:37> Subjective - Date & Time of Evaluation Date of Evaluation: 01/20/17 Time of Evaluation: 07:37 - Subjective Subjective: Medicine Progress Note- Dr. Ocampo Service Patient was seen and examined at bedside in no acute distress. Patient was complaining of abdominal pain which has improved, and hearing changes. She reports her hearing is decreased in her left ear and feel like its popping. Patient also reports her stool as being loose. Patient denies chest pain, palpitations, leg pain, nausea, vomiting, and constipation. Objective - Vital Signs/Intake and Output Vital Signs (last 24 hours): Temp Pulse Resp BP Pulse Ox 98.1 F 78 20 124/82 99 01/20/17 04:15 01/20/17 04:15 01/20/17 04:15 01/20/17 04:15 01/20/17 04:15 Intake and Output: 01/20/17 01/20/17 06:59 18:59 Intake Total 2020 Balance 2020 - Medications Medications: Current Medications Enoxaparin Sodium (Lovenox) 40 mg SC DAILY [facility] Last Admin: 01/19/17 09:44 Dose: 40 mg Ciprofloxacin (Cipro 200mg/100ml D5w) 100 mls @ 67 mls/hr IVPB Q12H [facility] Last Admin: 01/19/17 21:46 Dose: 67 mls/hr Metronidazole (Flagyl) 500 mg in 100 mls @ 100 mls/hr IVPB Q8 [facility] Last Admin: 01/20/17 05:20 Dose: 100 mls/hr Sodium Chloride (Sodium Chloride 0.9%) 1,000 mls @ 100 mls/hr IV .Q10H [facility] Last Admin: 01/19/17 21:55 Dose: Not Given Ketorolac Tromethamine (Toradol) 30 mg IVP Q6 PRN PRN Reason: Pain, moderate (4-7) Morphine Sulfate (Morphine) 1 mg IVP Q4H PRN PRN Reason: Pain, severe (8-10) Last Admin: 01/20/17 05:25 Dose: 1 mg Nicotine (Nicoderm Cq) 1 patch TD DAILY [facility] Last Admin: 01/19/17 09:45 Dose: 1 patch Ondansetron HCl (Zofran Inj) 4 mg IVP Q6 PRN PRN Reason: Nausea/Vomiting Last Admin: 01/19/17 13:48 Dose: 4 mg Pantoprazole Sodium (Protonix Ec Tab) 40 mg PO DAILY [facility] Last Admin: 01/19/17 09:44 Dose: 40 mg Pneumococcal Polyvalent Vaccine (Pneumovax 23 Vaccine) 0.5 ml IM .ONCE ONE Stop: 01/21/17 10:01 - Labs Labs: 01/19/17 07:40 01/19/17 07:40 - Constitutional Appears: No Acute Distress - Head Exam Head Exam: NORMAL INSPECTION, NORMOCEPHALIC - Eye Exam Eye Exam: EOMI, Normal appearance - ENT Exam ENT Exam: Mucous Membranes Moist - Neck Exam Neck Exam: Full ROM, Normal Inspection - Respiratory Exam Respiratory Exam: Clear to Ausculation Bilateral, NORMAL BREATHING PATTERN. absent: Rhonchi, Wheezes - Cardiovascular Exam Cardiovascular Exam: REGULAR RHYTHM, +S1, +S2. absent: Murmur - GI/Abdominal Exam GI & Abdominal Exam: Soft, Tenderness, Normal Bowel Sounds - Extremities Exam Extremities Exam: Normal Inspection. absent: Calf Tenderness, Pedal Edema, Tenderness - Neurological Exam Neurological Exam: Alert, Awake, Oriented x3 - Psychiatric Exam Psychiatric exam: Normal Affect, Normal Mood - Skin Skin Exam: Dry, Intact, Normal Color, Warm Assessment and Plan (1) Abdominal pain Assessment & Plan: Improving Afebrile, no leukocytosis * NPO expect for medicine until symptoms are under control * hx of IBS * Cipro 200mg IV Q12H and Flagyl 500MG IVPB Q8 started on 01/18/17 * Toradol 30mg IV Q6 PRN and Morphine 1mg IVPB q4h PRN for pain control * NS @100mls/hr * CT AB & Pelvis w/ IV & PO contrast: 1. Evaluation of the colon is limited in the absence of oral contrast. Apparent mild diffuse circumferential mural thickening in the colon is nonspecific and could be related to underdistention however acute nonspecific infectious/inflammatory colitis is also a differential consideration. No evidence of bowel obstruction. 2. Mild hepatomegaly and hepatic steatosis. 3. Patchy ground-glass attenuation in the lung bases is also nonspecific and could be related to nonspecific infection/ inflammation. * Abdominal US: Hepatomegaly. Echogenic liver may be seen in setting of hepatic parenchymal disease or fatty infiltration. GI Consult: Dr. Otero, help appreciated Status: Acute (2) Bradycardia Assessment & Plan: Heart Rate * Asymptomatic * 50s in ED, 56 (01/19/17) * 78 on 01/20/17 * NS @ 100mls/hr * Caution with pain medication (Morphine) * Monitored on Telemetry Status: Acute (3) Hypokalemia Assessment & Plan: * K+ 2.9 on admission, 3.3 (01/19/17) * Give 40meq of K in the ED * Started on NS with Potassium supplement @ 100cc/hr * Given KCl 20meq oral solution once and IVPB Once (01/19/17) * F/U am labs for potassium levels Status: Acute (4) Tobacco use disorder Assessment & Plan: * Smoking Cessation * Nicotine patch Status: Acute (5) Vomiting Assessment & Plan: Resolving Zofran 4mg IVP Q6 PRN Status: Acute (6) History of irritable bowel syndrome Assessment & Plan: GI consult (Dr. Otero) ---> Help appreciated * f/u recommendations Status: Chronic (7) Polysubstance abuse Assessment & Plan: Psychiatry Consult ( Dr. Luna)---> Help appreciated UDS : Positive for opiates, PCP, cocaine metabolites and cannabinoids Status: Chronic (8) Prophylactic measure Assessment & Plan: GI PPX: Protonix 40mg PO daily DVT PPX: SCDs, Lovenox 40 SC daily Status: Acute <Major Tan M - Last Filed: 01/20/17 18:27> Objective - Vital Signs/Intake and Output Vital Signs (last 24 hours): Temp Pulse Resp BP Pulse Ox 97.7 F 68 18 129/87 98 01/20/17 15:37 01/20/17 15:37 01/20/17 15:37 01/20/17 15:37 01/20/17 15:37 - Medications Medications: Current Medications Enoxaparin Sodium (Lovenox) 40 mg SC DAILY [facility] Last Admin: 01/20/17 10:12 Dose: 40 mg Sodium Chloride (Sodium Chloride 0.9%) 1,000 mls @ 100 mls/hr IV .Q10H [facility] Last Admin: 01/20/17 17:31 Dose: Not Given Ketorolac Tromethamine (Toradol) 30 mg IVP Q6 PRN PRN Reason: Pain, moderate (4-7) Morphine Sulfate (Morphine) 1 mg IVP Q4H PRN PRN Reason: Pain, severe (8-10) Last Admin: 01/20/17 17:24 Dose: 1 mg Nicotine (Nicoderm Cq) 1 patch TD DAILY [facility] Last Admin: 01/20/17 10:13 Dose: 1 patch Ondansetron HCl (Zofran Inj) 4 mg IVP Q6 PRN PRN Reason: Nausea/Vomiting Last Admin: 01/20/17 17:23 Dose: 4 mg Pantoprazole Sodium (Protonix Ec Tab) 40 mg PO DAILY [facility] Last Admin: 01/20/17 10:13 Dose: 40 mg Pneumococcal Polyvalent Vaccine (Pneumovax 23 Vaccine) 0.5 ml IM .ONCE ONE Stop: 01/21/17 10:01 Attending/Attestation - Attestation I have personally seen and examined this patient.: Yes I have fully participated in the care of the patient.: Yes I have reviewed all pertinent clinical information, including history, physical exam and plan: Yes Notes (Text): 01/20/17 18:26 Patient was seen and examined at bedside Abdominal pain is improved and patient started his boss to regular diet GI consultation and follow-up seen in appreciated Patient will need outpatient drug rehabilitation counseling Discharge planning in progress
--- NOTE | 2017-01-20 08:09 | CP.PCM.PN ---
Subjective - Date & Time of Evaluation Date of Evaluation: 01/20/17 Time of Evaluation: 08:06 - Subjective Subjective: CC: follow up abdominal pain Better today. No pain or N/V. Long discussion with patients about drug and alcohol abuse and how it caused her to have liver disease, GI symptoms, pancreatitis, etc, and will ultimately lead to her demise if she continues down this path. Objective - Vital Signs/Intake and Output Vital Signs (last 24 hours): Temp Pulse Resp BP Pulse Ox 98.1 F 78 20 124/82 99 01/20/17 04:15 01/20/17 04:15 01/20/17 04:15 01/20/17 04:15 01/20/17 04:15 Intake and Output: 01/20/17 01/20/17 06:59 18:59 Intake Total 2020 Balance 2019 - Medications Medications: Current Medications Enoxaparin Sodium (Lovenox) 40 mg SC DAILY [facility] Last Admin: 01/19/17 09:44 Dose: 40 mg Ciprofloxacin (Cipro 200mg/100ml D5w) 100 mls @ 67 mls/hr IVPB Q12H [facility] Last Admin: 01/19/17 21:46 Dose: 67 mls/hr Metronidazole (Flagyl) 500 mg in 100 mls @ 100 mls/hr IVPB Q8 [facility] Last Admin: 01/20/17 05:20 Dose: 100 mls/hr Sodium Chloride (Sodium Chloride 0.9%) 1,000 mls @ 100 mls/hr IV .Q10H [facility] Last Admin: 01/19/17 21:55 Dose: Not Given Ketorolac Tromethamine (Toradol) 30 mg IVP Q6 PRN PRN Reason: Pain, moderate (4-7) Morphine Sulfate (Morphine) 1 mg IVP Q4H PRN PRN Reason: Pain, severe (8-10) Last Admin: 01/20/17 05:25 Dose: 1 mg Nicotine (Nicoderm Cq) 1 patch TD DAILY [facility] Last Admin: 01/19/17 09:45 Dose: 1 patch Ondansetron HCl (Zofran Inj) 4 mg IVP Q6 PRN PRN Reason: Nausea/Vomiting Last Admin: 01/19/17 13:48 Dose: 4 mg Pantoprazole Sodium (Protonix Ec Tab) 40 mg PO DAILY [facility] Last Admin: 01/19/17 09:44 Dose: 40 mg Pneumococcal Polyvalent Vaccine (Pneumovax 23 Vaccine) 0.5 ml IM .ONCE ONE Stop: 01/21/17 10:01 - Labs Labs: 01/19/17 07:40 01/19/17 07:40 - Constitutional Appears: Well, No Acute Distress - Head Exam Head Exam: NORMOCEPHALIC - Eye Exam Eye Exam: absent: Scleral icterus - Respiratory Exam Respiratory Exam: Clear to Ausculation Bilateral - Cardiovascular Exam Cardiovascular Exam: REGULAR RHYTHM - GI/Abdominal Exam GI & Abdominal Exam: Soft. absent: Tenderness Assessment and Plan (1) Abdominal pain Assessment & Plan: Resolved. Related to polysubstance abuse. Would stop antibiotics Advance diet as tolerated Re- consult as needed. Status: Acute (2) Polysubstance abuse Assessment & Plan: Recommend mental health counselling Discussed at length with patient Status: Chronic
[2017-01-20] MEDS: Sodium Chloride 0.9% 1,000 ML IV SCH ×2 (08:51→17:31)
[2017-01-20] MEDS: Ciprofloxacin 200mg/100ml D5W 100 ML IVPB SCH (08:51)
[2017-01-20] MEDS: Enoxaparin 40 mg Syringe SC SCH (10:12)
[2017-01-20] MEDS: Pantoprazole 40 mg EC Tab PO SCH (10:13)
[2017-01-21 00:43] VITALS: O2SAT 97
[2017-01-21] MEDS: Sodium Chloride 0.9% 1,000 ML IV SCH (01:44)
[2017-01-21 09:18] VITALS: BP 123/78; PULSE 59; RESP 18; TEMP 98.9
[2017-01-21] MEDS: Enoxaparin 40 mg Syringe SC SCH (09:44)
[2017-01-21] MEDS: Pantoprazole 40 mg EC Tab PO SCH (09:46)
[2017-01-21] MEDS ORDERED: Pneumococcal 23-Valent Vaccine IM ONE (10:00)
--- NOTE | 2017-01-21 11:09 | CP.PCM.DIS ---
<DarrlyDontrell - Last Filed: 01/21/17 12:46> Provider - Provider Date of Admission: 01/20/17 18:05 Attending physician: Major Tan MD Primary care physician: None Consults: GI- Dr. Otero Psych- Dr. Luna Time Spent in preparation of Discharge (in minutes): 45 Hospital Course - Lab Results Lab Results: Most Recent Lab Values WBC 9.1 K/uL (4.8-10.8) 01/19/17 07:40 RBC 3.91 Mil/uL (3.80-5.20) 01/19/17 07:40 Hgb 12.4 g/dL (11.0-16.0) 01/19/17 07:40 Hct 37.5 % (34.0-47.0) 01/19/17 07:40 MCV 95.8 fL (81.0-99.0) 01/19/17 07:40 MCH 31.7 pg (27.0-31.0) H 01/19/17 07:40 MCHC 33.1 g/dL (33.0-37.0) 01/19/17 07:40 RDW 13.8 % (11.5-14.5) 01/19/17 07:40 Plt Count 196 K/uL (130-400) 01/19/17 07:40 MPV 10.4 fL (7.2-11.7) 01/19/17 07:40 Neut % (Auto) 71.9 % (50.0-75.0) 01/19/17 07:40 Lymph % (Auto) 18.2 % (20.0-40.0) L 01/19/17 07:40 [place] % (Auto) 7.2 % (0.0-10.0) 01/19/17 07:40 Eos % (Auto) 2.1 % (0.0-4.0) 01/19/17 07:40 Baso % (Auto) 0.6 % (0.0-2.0) 01/19/17 07:40 Neut # 6.5 K/uL (1.8-7.0) 01/19/17 07:40 Lymph # 1.7 K/uL (1.0-4.3) 01/19/17 07:40 [place] # 0.7 K/uL (0.0-0.8) 01/19/17 07:40 Eos # 0.2 K/uL (0.0-0.7) 01/19/17 07:40 Baso # 0.1 K/uL (0.0-0.2) 01/19/17 07:40 pO2 19 mm/Hg (30-55) L 01/18/17 18:20 VBG pH 7.34 (7.32-7.43) 01/18/17 18:20 VBG pCO2 57 mmHg (40-60) 01/18/17 18:20 VBG HCO3 25.7 mmol/L 01/18/17 18:20 VBG Total CO2 32.5 mmol/L (22-28) H 01/18/17 18:20 VBG O2 Sat (Calc) 29.9 % (40-65) L 01/18/17 18:20 VBG Base Excess 3.5 mmol/L (0.0-2.0) H 01/18/17 18:20 VBG Potassium 3.3 mmol/L (3.6-5.2) L 01/18/17 18:20 Sodium 135.0 mmol/l (132-148) 01/18/17 18:20 Chloride 97.0 mmol/L (98-107) L 01/18/17 18:20 Glucose 138 mg/dl (65-105) H 01/18/17 18:20 Lactate 0.9 mmol/L (0.7-2.1) 01/18/17 18:20 Sodium 134 mmol/L (132-148) 01/19/17 07:40 Potassium 3.3 mmol/L (3.6-5.2) L 01/19/17 07:40 Chloride 98 mmol/L (98-107) 01/19/17 07:40 Carbon Dioxide 26 mmol/L (22-30) 01/19/17 07:40 Anion Gap 13 (10-20) 01/19/17 07:40 BUN 6 mg/dL (7-17) L 01/19/17 07:40 Creatinine 0.6 MG/DL (0.7-1.2) L 01/19/17 07:40 Est GFR ( Amer) > 60 01/19/17 07:40 Est GFR (Non-Af Amer) > 60 01/19/17 07:40 Random Glucose 97 mg/dL (65-105) 01/19/17 07:40 Calcium 8.4 mg/dl (8.6-10.4) L 01/19/17 07:40 Phosphorus 3.0 mg/dL (2.5-4.5) 01/19/17 07:40 Magnesium 1.6 mg/dL (1.6-2.3) 01/19/17 07:40 Total Bilirubin 0.9 mg/dL (0.2-1.3) 01/19/17 07:40 AST 115 U/L (14-36) H 01/19/17 07:40 ALT 72 U/L (9-52) H 01/19/17 07:40 Alkaline Phosphatase 102 U/L (38-126) 01/19/17 07:40 Total Protein 6.6 g/dL (6.3-8.3) 01/19/17 07:40 Albumin 3.3 g/dL (3.5-5.0) L 01/19/17 07:40 Globulin 3.3 gm/dL (2.2-3.9) 01/19/17 07:40 Albumin/Globulin Ratio 1.0 (1.0-2.1) 01/19/17 07:40 Lipase 113 U/L (23-300) 01/18/17 10:28 Venous Blood Potassium 3.3 mmol/L (3.6-5.2) L 01/18/17 18:20 Urine Color Yellow (YELLOW) 01/18/17 12:44 Urine Clarity Clear (Clear) 01/18/17 12:44 Urine pH 6.0 (5.0-8.0) 01/18/17 12:44 Ur Specific [place] 1.013 (1.003-1.030) 01/18/17 12:44 Urine Protein Negative mg/dL (NEGATIVE) 01/18/17 12:44 Urine Glucose (UA) 1+ mg/dL (Normal) 01/18/17 12:44 Urine Ketones 1+ mg/dL (NEGATIVE) H 01/18/17 12:44 Urine Blood Negative (NEGATIVE) 01/18/17 12:44 Urine Nitrate Negative (NEGATIVE) 01/18/17 12:44 Urine Bilirubin Negative (NEGATIVE) 01/18/17 12:44 Urine Urobilinogen Normal mg/dL (0.2-1.0) 01/18/17 12:44 Ur Leukocyte Esterase Neg Dylan/uL (Negative) 01/18/17 12:44 Urine WBC (Auto) 1 /hpf (0-5) 01/18/17 12:44 Urine RBC (Auto) < 1 /hpf (0-3) 01/18/17 12:44 Ur Squamous Epith Cells 1 /hpf (0-5) 01/18/17 12:44 Urine HCG, Qual Negative (NEGATIVE) 01/18/17 12:44 Urine Opiates Screen Positive (NEGATIVE) 01/18/17 12:44 Urine Methadone Screen Negative (NEGATIVE) 01/18/17 12:44 Ur Barbiturates Screen Negative (NEGATIVE) 01/18/17 12:44 Ur Phencyclidine Scrn Positive (NEGATIVE) 01/18/17 12:44 Ur Amphetamines Screen Negative (NEGATIVE) 01/18/17 12:44 U Benzodiazepines Scrn Negative (NEGATIVE) 01/18/17 12:44 U Oth Cocaine Metabols Positive (NEGATIVE) 01/18/17 12:44 U Cannabinoids Screen Positive (NEGATIVE) 01/18/17 12:44 - Hospital Course Hospital Course: As per admission documentation: HPI: 31 F with PMHx of pancreatitis and IBS, presents to ED with abdominal pain , nausea and vomiting x 2 days. Patient reports she has IBS and her normal bowel movements are loose stools. Patient reports she started have right sided abdominal pain that feels sharp in nature and does not radiate. She has unable to tolerate anything by mouth. She was hospitalized a few weeks ago for similar symptoms. Admitted to abdominal pain, n/v/ and diarrhea. Denied any sick contacts, recent travel. Denied fever, chills, headache, blurry vision chest pain, SOB, or urinary symptoms. Patient was admitted to the hospital for abdominal pain. Patient was started on IV cipro and flagyl. CT abdomen and pelvis w PO and Iv contrast showed mild diffuse circumferential mural thickening in the colon is nonspecific. Patient was evaluated by GI, Dr. Quevedo. Patient's UDS showed PCP, cocaine, canabis. Patient was made NPO and advanced slowly on diet. Abdominal pain was attributed to polysubstance abuse. Discussed patient with psychiatry, Dr. Luna. Patient was referred to [facility] IOP, and counselled on cessation of alcohol and drugs. Patient tolerated PO and abdominal pain subsided. Discharge Exam - Head Exam Head Exam: ATRAUMATIC, NORMAL INSPECTION, NORMOCEPHALIC - Eye Exam Eye Exam: EOMI, Normal appearance Pupil Exam: NORMAL ACCOMODATION, PERRL - ENT Exam ENT Exam: Mucous Membranes Moist - Respiratory Exam Respiratory Exam: Clear to PA & Lateral, NORMAL BREATHING PATTERN, UNREMARKABLE. absent: Rales, Rhonchi, Wheezes, Respiratory Distress - Cardiovascular Exam Cardiovascular Exam: REGULAR RHYTHM, +S1, +S2 - GI/Abdominal Exam GI & Abdominal Exam: Normal Bowel Sounds, Soft, Unremarkable. absent: Distended , Firm, Tenderness - Extremities Exam Extremities exam: normal capillary refill, pedal pulses present - Neurological Exam Neurological exam: Alert, CN II-XII Intact, Oriented x3 - Psychiatric Exam Psychiatric exam: Normal Affect, Normal Mood - Skin Skin Exam: Dry, Intact, Normal Color, Warm Discharge Plan - Follow Up Plan Condition: FAIR Disposition: HOME/ ROUTINE Instructions: Acute Abdominal Pain (DC) Additional Instructions: Please discharge patient home, as per Dr. Tan. Patient is to followup with her primary doctor in 1 week. Patient is to abstain from drug and alcohol abuse. Patient instructed to followup at the [facility], [address] [place] [address] (Phone number: ) for counseling and treatment of polysubstance abuse. If symptoms worsen, patient is to return to the hospital for further treatment and evaluation. Referrals: Major Tan MD [Staff Provider] - <Major Tan - Last Filed: 01/21/17 14:01> Provider - Provider Date of Admission: 01/20/17 18:05 Attending physician: Major Tan MD Hospital Course - Lab Results Lab Results: Most Recent Lab Values WBC 9.1 K/uL (4.8-10.8) 01/19/17 07:40 RBC 3.91 Mil/uL (3.80-5.20) 01/19/17 07:40 Hgb 12.4 g/dL (11.0-16.0) 01/19/17 07:40 Hct 37.5 % (34.0-47.0) 01/19/17 07:40 MCV 95.8 fL (81.0-99.0) 01/19/17 07:40 MCH 31.7 pg (27.0-31.0) H 01/19/17 07:40 MCHC 33.1 g/dL (33.0-37.0) 01/19/17 07:40 RDW 13.8 % (11.5-14.5) 01/19/17 07:40 Plt Count 196 K/uL (130-400) 01/19/17 07:40 MPV 10.4 fL (7.2-11.7) 01/19/17 07:40 Neut % (Auto) 71.9 % (50.0-75.0) 01/19/17 07:40 Lymph % (Auto) 18.2 % (20.0-40.0) L 01/19/17 07:40 [place] % (Auto) 7.2 % (0.0-10.0) 01/19/17 07:40 Eos % (Auto) 2.1 % (0.0-4.0) 01/19/17 07:40 Baso % (Auto) 0.6 % (0.0-2.0) 01/19/17 07:40 Neut # 6.5 K/uL (1.8-7.0) 01/19/17 07:40 Lymph # 1.7 K/uL (1.0-4.3) 01/19/17 07:40 [place] # 0.7 K/uL (0.0-0.8) 01/19/17 07:40 Eos # 0.2 K/uL (0.0-0.7) 01/19/17 07:40 Baso # 0.1 K/uL (0.0-0.2) 01/19/17 07:40 pO2 19 mm/Hg (30-55) L 01/18/17 18:20 VBG pH 7.34 (7.32-7.43) 01/18/17 18:20 VBG pCO2 57 mmHg (40-60) 01/18/17 18:20 VBG HCO3 25.7 mmol/L 01/18/17 18:20 VBG Total CO2 32.5 mmol/L (22-28) H 01/18/17 18:20 VBG O2 Sat (Calc) 29.9 % (40-65) L 01/18/17 18:20 VBG Base Excess 3.5 mmol/L (0.0-2.0) H 01/18/17 18:20 VBG Potassium 3.3 mmol/L (3.6-5.2) L 01/18/17 18:20 Sodium 135.0 mmol/l (132-148) 01/18/17 18:20 Chloride 97.0 mmol/L (98-107) L 01/18/17 18:20 Glucose 138 mg/dl (65-105) H 01/18/17 18:20 Lactate 0.9 mmol/L (0.7-2.1) 01/18/17 18:20 Sodium 134 mmol/L (132-148) 01/19/17 07:40 Potassium 3.3 mmol/L (3.6-5.2) L 01/19/17 07:40 Chloride 98 mmol/L (98-107) 01/19/17 07:40 Carbon Dioxide 26 mmol/L (22-30) 01/19/17 07:40 Anion Gap 13 (10-20) 01/19/17 07:40 BUN 6 mg/dL (7-17) L 01/19/17 07:40 Creatinine 0.6 MG/DL (0.7-1.2) L 01/19/17 07:40 Est GFR ( Amer) > 60 01/19/17 07:40 Est GFR (Non-Af Amer) > 60 01/19/17 07:40 Random Glucose 97 mg/dL (65-105) 01/19/17 07:40 Calcium 8.4 mg/dl (8.6-10.4) L 01/19/17 07:40 Phosphorus 3.0 mg/dL (2.5-4.5) 01/19/17 07:40 Magnesium 1.6 mg/dL (1.6-2.3) 01/19/17 07:40 Total Bilirubin 0.9 mg/dL (0.2-1.3) 01/19/17 07:40 AST 115 U/L (14-36) H 01/19/17 07:40 ALT 72 U/L (9-52) H 01/19/17 07:40 Alkaline Phosphatase 102 U/L (38-126) 01/19/17 07:40 Total Protein 6.6 g/dL (6.3-8.3) 01/19/17 07:40 Albumin 3.3 g/dL (3.5-5.0) L 01/19/17 07:40 Globulin 3.3 gm/dL (2.2-3.9) 01/19/17 07:40 Albumin/Globulin Ratio 1.0 (1.0-2.1) 01/19/17 07:40 Lipase 113 U/L (23-300) 01/18/17 10:28 Venous Blood Potassium 3.3 mmol/L (3.6-5.2) L 01/18/17 18:20 Urine Color Yellow (YELLOW) 01/18/17 12:44 Urine Clarity Clear (Clear) 01/18/17 12:44 Urine pH 6.0 (5.0-8.0) 01/18/17 12:44 Ur Specific [place] 1.013 (1.003-1.030) 01/18/17 12:44 Urine Protein Negative mg/dL (NEGATIVE) 01/18/17 12:44 Urine Glucose (UA) 1+ mg/dL (Normal) 01/18/17 12:44 Urine Ketones 1+ mg/dL (NEGATIVE) H 01/18/17 12:44 Urine Blood Negative (NEGATIVE) 01/18/17 12:44 Urine Nitrate Negative (NEGATIVE) 01/18/17 12:44 Urine Bilirubin Negative (NEGATIVE) 01/18/17 12:44 Urine Urobilinogen Normal mg/dL (0.2-1.0) 01/18/17 12:44 Ur Leukocyte Esterase Neg Dylan/uL (Negative) 01/18/17 12:44 Urine WBC (Auto) 1 /hpf (0-5) 01/18/17 12:44 Urine RBC (Auto) < 1 /hpf (0-3) 01/18/17 12:44 Ur Squamous Epith Cells 1 /hpf (0-5) 01/18/17 12:44 Urine HCG, Qual Negative (NEGATIVE) 01/18/17 12:44 Urine Opiates Screen Positive (NEGATIVE) 01/18/17 12:44 Urine Methadone Screen Negative (NEGATIVE) 01/18/17 12:44 Ur Barbiturates Screen Negative (NEGATIVE) 01/18/17 12:44 Ur Phencyclidine Scrn Positive (NEGATIVE) 01/18/17 12:44 Ur Amphetamines Screen Negative (NEGATIVE) 01/18/17 12:44 U Benzodiazepines Scrn Negative (NEGATIVE) 01/18/17 12:44 U Oth Cocaine Metabols Positive (NEGATIVE) 01/18/17 12:44 U Cannabinoids Screen Positive (NEGATIVE) 01/18/17 12:44 Attending/Attestation - Attestation I have personally seen and examined this patient.: Yes I have fully participated in the care of the patient.: Yes I have reviewed all pertinent clinical information, including history, physical exam and plan: Yes Notes (Text): 01/21/17 14:00 Patient was seen and examined at bedside with the resident Patient appears comfortable with no complaints of abdominal pain, nausea or vomiting She is cleared for discharge Patient will follow-up the with her primary medical doctor and also follow-up for drug rehabilitation I agree with the discharge note by the resident
== END 2017-01-21 12:30 | disposition home or self-care (01) | DRG 813 ==
LOC: C.ER 09:35 → C.9E 18:27 → C.6T 22:54 → OBSVTOIN 01-20 18:05
PROVIDERS: ADMIT Internal Medicine; ATTEND Internal Medicine
DX: R10.9 Unspecified abdominal pain (principal); E87.6 Hypokalemia; R00.1 Bradycardia, unspecified; F14.10 Cocaine abuse, uncomplicated; F16.10 Hallucinogen abuse, uncomplicated; F11.10 Opioid abuse, uncomplicated; F10.10 Alcohol abuse, uncomplicated; K58.0 Irritable bowel syndrome with diarrhea; F41.9 Anxiety disorder, unspecified; F17.210 Nicotine dependence, cigarettes, uncomplicated; Y90.9 Presence of alcohol in blood, level not specified; F12.10 Cannabis abuse, uncomplicated; K29.70 Gastritis, unspecified, without bleeding

== ENCOUNTER 2017-03-30 05:23 | Emergency (ER) | payer SELFPAY ==
[2017-03-30 05:24] VITALS: BMI 31.8
[2017-03-30 05:37] VITALS: BP 116/77; PULSE 92; RESP 18; TEMP 98.4; O2SAT 97
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
== END 2017-03-30 06:08 | disposition home or self-care (01) ==
LOC: SUPCPDRO 05:23 → C.ER 05:23
DX: S09.92XA Unspecified injury of nose, initial encounter (principal); Y08.89XA Assault by other specified means, initial encounter; Y93.9 Activity, unspecified; Y92.9 Unspecified place or not applicable

== ENCOUNTER 2017-04-15 04:32 | Emergency (ER) | payer SELFPAY ==
[2017-04-15 04:32] VITALS: BMI 31.8
[2017-04-15 04:56] VITALS: RESP 16
[2017-04-15] MEDS ORDERED: Sodium Chloride 0.9% 1,000 ML IV ONE (05:12)
--- NOTE | 2017-04-15 05:17 | C.PDOC ---
History Of Present Illness 31 year old female with past medical history of etoh abuse was brought to the ED by EMS with complaints of nausea, vomiting, diarrhea, and abdominal pain for 12 hours. Patient states she was drinking alcohol when the symptoms began and has not been able to eat much due to persistent vomiting. She notes she "drinks often but not everyday," and "hang overs don't exist in my world." Patient denies fever, chills, sick contacts, dysuria. lmp 03/26 Time Seen by Provider: 04/15/17 05:01 Chief Complaint (Nursing): Abdominal Pain History Per: Patient History/Exam Limitations: no limitations Onset/Duration Of Symptoms: Hrs (12 hrs ) Current Symptoms Are (Timing): Still Present Location Of Pain/Discomfort: Diffuse Radiation Of Pain To:: None Quality Of Discomfort: "Pain" Associated Symptoms: Nausea, Vomiting, Diarrhea. denies: Fever, Chills, Urinary Symptoms Exacerbating Factors: None Alleviating Factors: None Last Bowel Movement: Today Recent travel outside of the [place]: No Abnormal Vaginal Bleeding: No Past Medical History Reviewed: Historical Data, Nursing Documentation, Vital Signs Vital Signs: Last Vital Signs Temp 99 F 04/15/17 06:49 Pulse 108 H 04/15/17 06:49 Resp 16 04/15/17 06:49 BP 105/70 04/15/17 06:49 Pulse Ox 98 04/15/17 07:23 - Medical History PMH: Anxiety Family History: States: Unknown Family Hx - Social History Hx Alcohol Use: Yes Hx Substance Use: Yes - Immunization History Hx Tetanus Toxoid Vaccination: No Hx Influenza Vaccination: No Hx Pneumococcal Vaccination: No Review Of Systems Constitutional: Negative for: Fever, Chills Cardiovascular: Negative for: Chest Pain, Palpitations Respiratory: Negative for: Cough, Shortness of Breath Gastrointestinal: Positive for: Nausea, Vomiting, Abdominal Pain, Diarrhea Genitourinary: Negative for: Dysuria Physical Exam - Physical Exam Appears: Non-toxic, No Acute Distress Skin: Warm, Dry Head: Atraumatic, Normacephalic Eye(s): bilateral: Normal Inspection, PERRL, EOMI Oral Mucosa: Dry Neck: Normal ROM, Supple Chest: Symmetrical, No Deformity Cardiovascular: Rhythm Regular, No Murmur, Other (Patient is tachycardic ) Respiratory: Normal Breath Sounds, No Rales, No Rhonchi, No Wheezing Gastrointestinal/Abdominal: Bowel Sounds (hypoactive bowel sounds ), Soft, Tenderness (epigastric tenderness), No Distention, No Guarding, No Rebound, Other (abdomen is obese ) Extremity: Normal ROM, No Tenderness Neurological/Psych: Oriented x3, Normal Speech, Normal Cognition, Cerebellar Signs, Normal Motor ED Course And Treatment - Laboratory Results Result Diagrams: 04/15/17 06:12 04/15/17 06:12 O2 Sat by Pulse Oximetry: 98 (RA) Progress Note: Labs and blood work were ordered. Patient was given Pepcid, Zofran, and IV fluids. Medical Decision Making Medical Decision Making: pt reports pain and nausea decreased after pepcid and zofran, still with mild tenderness in left upper quad/epigastric area, maalox and po challenge ordered. if pt tolerates po, to be discharged with pepcid and zofran with med clinic and gi follow up. Disposition - Disposition Referrals: [facility] [Outside] [facility] [Outside] Lio Keen MD [Staff Provider] - Disposition: HOME/ ROUTINE Disposition Time: 07:21 Condition: STABLE Additional Instructions: Recommend that you attend detox for your drinking. Follow up with medical clinic and with GI, call for appointments. Take medications as prescribed. Return to ER for any worse symptoms. Prescriptions: Famotidine [Pepcid] 20 mg PO DAILY #14 tab Ondansetron ODT [Zofran ODT] 4 mg PO TID #12 odt Instructions: Gastritis (ED) Forms: [facility] (Fijian), General Discharge Instructions - Clinical Impression Clinical Impression: Gastritis - PA / CLINICAL COURIER / Resident Statement MD/DO has reviewed & agrees with the documentation as recorded. - Scribe Statement The provider has reviewed the documentation as recorded by the Scribe Judith Soliman All medical record entries made by the Crowibjason were at my direction and personally dictated by me. I have reviewed the chart and agree that the record accurately reflects my personal performance of the history, physical exam, medical decision making, and the department course for this patient. I have also personally directed, reviewed, and agree with the discharge instructions and disposition.
[2017-04-15 06:16] LABS: BASO # 0.1 K/uL (0.0-0.2); BASO % 0.9 % (0.0-2.0); EOS # 0.2 K/uL (0.0-0.7); EOS % 2.1 % (0.0-4.0); HEMATOCRIT 36.8 % (34.0-47.0); LYMPH # 1.7 K/uL (1.0-4.3); LYMPH % 19.2 % (20.0-40.0); MEAN CELL VOLUME 93.3 fL (81.0-99.0); MEAN CORPUSCULAR HEMOGLOBIN 31.8 pg (27.0-31.0); MEAN CORPUSCULAR HGB CONC 34.1 g/dL (33.0-37.0); MEAN PLATELET VOLUME 9.2 fL (7.2-11.7); MONO # 0.7 K/uL (0.0-0.8); MONO % 7.6 % (0.0-10.0); NRBC % 0.1 % (0.0-2.0); RED CELL DISTRIBUTION WIDTH 13.7 % (11.5-14.5); WHITE BLOOD COUNT 8.7 K/uL (4.8-10.8)
[2017-04-15 06:23] LABS: RBC URINE 1 /hpf (0-3); URINE BACTERIA RARE (<OCC); URINE BILIRUBIN NEGATIVE (NEGATIVE); URINE BLOOD NEGATIVE (NEGATIVE); URINE COLOR Yellow (YELLOW); URINE GLUCOSE (UA) NORMAL (Normal); URINE KETONE NEGATIVE (NEGATIVE); URINE LEUKOCYTE ESTERASE NEG Leu/uL (Negative); URINE PROTEIN NEGATIVE (NEGATIVE); URINE UROBILINOGEN NORMAL mg/dL (0.2-1.0); WBC URINE 1 /hpf (0-5)
[2017-04-15 06:29] LABS: CHLORIDE 96 mmol/L (98-107); SODIUM 137 mmol/L (132-148)
[2017-04-15 06:31] LABS: AST/SGOT 105 U/L (14-36); BILIRUBIN,TOTAL 0.7 mg/dL (0.2-1.3); CARBON DIOXIDE 23 mmol/L (22-30); GFR AFRICAN-AMERICAN > 60
[2017-04-15 06:32] LABS: ALB/GLOB RATIO 1.3 (1.0-2.1); ALKALINE PHOSPHATASE 103 U/L (38-126); ALT/SGPT 57 U/L (9-52); BLOOD UREA NITROGEN 6 mg/dL (7-17); CALCIUM 8.7 mg/dl (8.6-10.4); GLUCOSE,RANDOM 98 mg/dL (65-105); TOTAL PROTEIN 7.7 g/dL (6.3-8.3)
[2017-04-15] MEDS ORDERED: Alum-Mag Hydrox-Simethicone Susp (30 mL) PO STA (06:54)
[2017-04-15] MEDS ORDERED: Aluminum Hydroxide/Magnesium Hydroxide Susp (30 mL) ONE (06:56)
[2017-04-15 07:47] VITALS: BP 135/78; PULSE 100; TEMP 97.7
[2017-04-15 22:54] VITALS: O2SAT 98
== END 2017-04-15 07:49 | disposition home or self-care (01) ==
LOC: C.ER 04:32
DX: K29.70 Gastritis, unspecified, without bleeding (principal)
CPT/HCPCS: 80053; 81001; 83690; 84703; 85025; 96361; 96374; 96375; 99285; J2405; J7040

== ENCOUNTER 2017-05-15 14:33 | Emergency (ER) | payer OTHER ==
[2017-05-15 14:33] VITALS: BMI 31.8
[2017-05-15] MEDS ORDERED: Sodium Chloride 0.9% 1,000 ML IV STA (14:52)
[2017-05-15] MEDS ORDERED: Alum-Mag Hydrox-Simethicone Susp (30 mL) PO STA (14:52)
--- NOTE | 2017-05-15 14:59 | C.PDOC ---
History Of Present Illness 31 y/o F c PMHx gastritis, alcohol abuse p/w abdominal pain x 2 days. Pain is epigstric, sharp, nonradiating, constant, associated with nausea and vomiting. Patient states these symptoms are typical of her gastritis. She was informed in the past that her gastritis is likely due to her alcohol use and other diet. She states that she has not drunk for 2 days and the gastritis recurred anyway so she does not understand why. She denies fever, diarrhea, chest pain, dyspnea. Time Seen by Provider: 05/15/17 14:42 Chief Complaint (Nursing): Abdominal Pain Past Medical History Vital Signs: Last Vital Signs Temp Pulse 69 05/15/17 14:41 Resp 20 05/15/17 14:41 BP 148/83 05/15/17 14:41 Pulse Ox 100 05/15/17 15:05 - Medical History PMH: Anxiety, Gastritis Denies: HIV, HTN, Seizures, Sexually Transmitted Disease Family History: States: Unknown Family Hx - Social History Hx Alcohol Use: Yes Hx Substance Use: Yes - Immunization History Hx Tetanus Toxoid Vaccination: No Hx Influenza Vaccination: No Hx Pneumococcal Vaccination: No Review Of Systems Except As Marked, All Systems Reviewed And Found Negative. Constitutional: Negative for: Fever Cardiovascular: Negative for: Chest Pain Physical Exam - Physical Exam Additional Physical Exam Comments: Constitutional: No acute distress. Head: Normocephalic. Atraumatic. Eyes: PERRL. ENT: Moist mucous membranes. Neck: Supple. Cardiovascular: Regular rate. Radial pulse 2+ bilaterally. Chest: No tenderness. Respiratory: Clear to auscultation bilaterally. GI: Soft. Epigastric tenderness without guarding or rebound.. Nondistended. Back: No CVA tenderness. Musculoskeletal: No tenderness or swelling of extremities. Skin: No rash. Neurologic: Alert, no focal deficit. ED Course And Treatment - Laboratory Results Result Diagrams: 05/15/17 15:24 05/15/17 15:24 O2 Sat by Pulse Oximetry: 100 Disposition - Disposition Referrals: [facility] [Outside] Disposition: HOME/ ROUTINE Disposition Time: 16:10 Condition: STABLE Prescriptions: Famotidine/Ca Carb/Mag Hydrox [Pepcid Complete Tablet Chew] 1 each PO BID #28 tab.chew Ondansetron ODT [Zofran ODT] 4 mg PO Q8 #12 odt Instructions: Gastritis (ED), Polysubstance Abuse (ED) Forms: [employer] (Sammarinese) - Clinical Impression Clinical Impression: Abdominal pain, Polysubstance abuse
[2017-05-15] MEDS ORDERED: Aluminum Hydroxide/Magnesium Hydroxide Susp (30 mL) ONE (15:03)
[2017-05-15 15:28] LABS: BASO % 0.5 % (0.0-2.0); EOS # 0.1 K/uL (0.0-0.7); EOS % 0.7 % (0.0-4.0); HEMATOCRIT 37.7 % (34.0-47.0); LYMPH # 1.6 K/uL (1.0-4.3); LYMPH % 16.9 % (20.0-40.0); MEAN CELL VOLUME 94.5 fL (81.0-99.0); MEAN CORPUSCULAR HEMOGLOBIN 32.2 pg (27.0-31.0); MEAN CORPUSCULAR HGB CONC 34.1 g/dL (33.0-37.0); MONO % 10.9 % (0.0-10.0); RED CELL DISTRIBUTION WIDTH 13.7 % (11.5-14.5); WHITE BLOOD COUNT 9.4 K/uL (4.8-10.8)
[2017-05-15 15:41] LABS: CHLORIDE 97 mmol/L (98-107)
[2017-05-15 15:42] LABS: SODIUM 134 mmol/L (132-148)
[2017-05-15 15:44] LABS: ALB/GLOB RATIO 1.4 (1.0-2.1); BILIRUBIN,TOTAL 1.3 mg/dL (0.2-1.3); CARBON DIOXIDE 23 mmol/L (22-30); GFR AFRICAN-AMERICAN > 60; TOTAL PROTEIN 7.9 g/dL (6.3-8.3)
[2017-05-15 15:45] LABS: ALKALINE PHOSPHATASE 91 U/L (38-126); ALT/SGPT 61 U/L (9-52); AST/SGOT 99 U/L (14-36); BLOOD UREA NITROGEN 10 mg/dL (7-17); CALCIUM 9.5 mg/dl (8.6-10.4); GLUCOSE,RANDOM 106 mg/dL (65-105); POTASSIUM 4.2 mmol/L (3.6-5.2)
[2017-05-15 15:46] LABS: ALCOHOL SERUM < 10 mg/dl (0-10)
[2017-05-15 16:27] VITALS: BP 163/104; PULSE 81; RESP 18; TEMP 98.1; O2SAT 96
== END 2017-05-15 18:11 | disposition home or self-care (01) ==
LOC: C.ER 14:33
DX: R10.9 Unspecified abdominal pain (principal); F19.10 Other psychoactive substance abuse, uncomplicated
CPT/HCPCS: 80053; 80320; 80324; 80345; 80346; 80349; 80353; 80358; 80361; 83690; 83992; 84703; 85025; 96361; 96374; 96375; 99285; J2405; J7040

== ENCOUNTER 2017-06-07 02:35 | Emergency (ER) | payer MEDICAID ==
[2017-06-07 02:35] VITALS: BMI 31.8
--- NOTE | 2017-06-07 03:08 | C.PDOC ---
History Of Present Illness 31 year old female presents to the ER via EMS after drinking ETOH, complaining of generalized pain. Patient called EMS herself stating she needed to be taken to a hospital for her bodyaches. Pt is argumentative, alert, oriented, with a steady gait but complains of pain when walking. Denies other complaints at this time.Pt is found eating a sandwich on stretcher and stated to me and when I attempted to take a history pt stated " i don't want to keep repeating myself." Time Seen by Provider: 06/07/17 02:45 Chief Complaint (Nursing): Medical Clearance History Per: Patient History/Exam Limitations: no limitations Onset/Duration Of Symptoms: Hrs Current Symptoms Are (Timing): Still Present Severity: Mild Recent travel outside of the [place]: No Past Medical History Reviewed: Historical Data, Nursing Documentation, Vital Signs Vital Signs: Last Vital Signs Temp 98.4 F 06/07/17 02:42 Pulse 97 H 06/07/17 02:42 Resp 16 06/07/17 02:42 BP 144/98 H 06/07/17 02:42 Pulse Ox 98 06/07/17 03:30 - Medical History PMH: Anxiety, Gastritis Surgical History: No Surg Hx Family History: States: Unknown Family Hx - Social History Hx Alcohol Use: Yes Hx Substance Use: Yes - Immunization History Hx Tetanus Toxoid Vaccination: No Hx Influenza Vaccination: No Hx Pneumococcal Vaccination: No Review Of Systems Constitutional: Negative for: Fever, Chills Respiratory: Negative for: Shortness of Breath, Wheezing Gastrointestinal: Negative for: Nausea, Vomiting, Abdominal Pain, Diarrhea Musculoskeletal: Positive for: Other (Generalized pain) Physical Exam - Physical Exam Appears: Non-toxic, No Acute Distress, Other (ETOH on breath) Skin: Normal Color, Warm, Dry Head: Atraumatic, No Swelling Eye(s): bilateral: Normal Inspection, EOMI Oral Mucosa: Moist, Other (AOB) Tongue: Normal Appearing Lips: Normal Appearing, No Swelling Neck: Normal, Supple Chest: Symmetrical Cardiovascular: Rhythm Regular Respiratory: Normal Breath Sounds, No Rales, No Rhonchi, No Wheezing Extremity: Normal ROM (x4) Extremity: Bilateral: Atraumatic Neurological/Psych: Oriented x3, Normal Speech Gait: Steady ED Course And Treatment O2 Sat by Pulse Oximetry: 98 (Room air) Pulse Ox Interpretation: Normal Progress Note: Patient is alert and oriented requesting to rest for a while before leaving tonight. Disposition Counseled Patient/Family Regarding: Diagnosis, Need For Followup - Disposition Disposition: HOME/ ROUTINE Disposition Time: 05:00 Condition: STABLE Additional Instructions: Follow up in clinic for outpatient Detox Instructions: Abuse of Alcohol (ED) Forms: [employer] (Equatorial [place]inean) - Clinical Impression Clinical Impression: Alcohol abuse - Scribe Statement The provider has reviewed the documentation as recorded by the Scribjason Delgado All medical record entries made by the Crowibjason were at my direction and personally dictated by me. I have reviewed the chart and agree that the record accurately reflects my personal performance of the history, physical exam, medical decision making, and the department course for this patient. I have also personally directed, reviewed, and agree with the discharge instructions and disposition.
[2017-06-07 05:21] VITALS: BP 100/65; PULSE 100; RESP 18; TEMP 97.9; O2SAT 97
== END 2017-06-07 05:24 | disposition home or self-care (01) ==
LOC: C.ER 02:35
DX: F10.10 Alcohol abuse, uncomplicated (principal); Y90.9 Presence of alcohol in blood, level not specified

== ENCOUNTER 2017-06-12 03:44 | Emergency (ER) | payer MEDICAID ==
[2017-06-12 03:44] VITALS: BMI 31.8
--- NOTE | 2017-06-12 04:07 | C.PDOC ---
History Of Present Illness Patient presents to the ED via EMS after being found in public with EtOH on breath. Patient admits to drinking prior to arrival. Patient denies physical complaints, suicidal, or homicidal ideations. Time Seen by Provider: 06/12/17 04:07 Chief Complaint (Nursing): Substance Abuse History Per: Patient, EMS History/Exam Limitations: no limitations Onset/Duration Of Symptoms: Hrs Current Symptoms Are (Timing): Still Present Suicide/Self Injury Attempted (Context): None Modifying Factor(s): Alcohol Pain Scale Rating Of: 0 Associated Symptoms: denies: Suicidal Thoughts, Suicidal Plan Involuntary Hold By: None Recent travel outside of the [place]: No Past Medical History Reviewed: Historical Data, Nursing Documentation, Vital Signs Vital Signs: Last Vital Signs Temp 98.4 F 06/12/17 03:59 Pulse 99 H 06/12/17 03:59 Resp 18 06/12/17 03:59 BP 133/93 H 06/12/17 03:59 Pulse Ox 98 06/12/17 06:25 - Medical History PMH: Anxiety, Gastritis Family History: States: No Known Family Hx - Social History Hx Alcohol Use: Yes Hx Substance Use: Yes (PCP(06/12/17)) - Immunization History Hx Tetanus Toxoid Vaccination: No Hx Influenza Vaccination: No Hx Pneumococcal Vaccination: No Review Of Systems Constitutional: Negative for: Fever, Chills Gastrointestinal: Negative for: Nausea, Vomiting Psych: Negative for: Suicidal ideation Physical Exam - Physical Exam Appears: Non-toxic, No Acute Distress, Other (Et [place] on breath ) Skin: Warm, Dry Head: Atraumatic, Normacephalic, No Tenderness Eye(s): bilateral: Normal Inspection, PERRL, EOMI Oral Mucosa: Moist Neck: Supple Chest: Symmetrical, No Deformity Cardiovascular: Rhythm Regular, No Murmur Respiratory: No Rales, No Rhonchi, No Wheezing Gastrointestinal/Abdominal: Soft, No Tenderness, No Distention, No Guarding, No Rebound Extremity: Normal ROM, No Tenderness Neurological/Psych: Oriented x3 ED Course And Treatment O2 Sat by Pulse Oximetry: 98 (RA) Pulse Ox Interpretation: Normal Reevaluation Time: 06:24 Reassessment Condition: Improved Disposition Counseled Patient/Family Regarding: Studies Performed, Diagnosis, Need For Followup - Disposition Referrals: [facility] [Outside] Disposition Time: 04:07 Condition: FAIR Instructions: Alcohol Intoxication (DC) Forms: [employer] (Persian) - Clinical Impression Clinical Impression: Alcohol abuse, Alcohol intoxication - PA / UNLOAD ASSOCIATE / Resident Statement MD/DO has reviewed & agrees with the documentation as recorded. - Scribe Statement The provider has reviewed the documentation as recorded by the Scribe Judith Soliman All medical record entries made by the Scribe were at my direction and personally dictated by me. I have reviewed the chart and agree that the record accurately reflects my personal performance of the history, physical exam, medical decision making, and the department course for this patient. I have also personally directed, reviewed, and agree with the discharge instructions and disposition. Physician Patient Turnover Patient Signed Over To: Jacob Combs Handoff Comments: pending sobriety
[2017-06-12 08:49] VITALS: BP 121/75; PULSE 120; RESP 16; TEMP 98.2; O2SAT 100
== END 2017-06-12 08:45 | disposition home or self-care (01) ==
LOC: C.ER 03:44
DX: F10.129 Alcohol abuse with intoxication, unspecified (principal); Y90.9 Presence of alcohol in blood, level not specified

== ENCOUNTER 2017-06-17 00:41 | Emergency (ER) | payer SELFPAY ==
[2017-06-17 00:41] VITALS: BMI 31.8
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
[2017-06-17 01:36] LABS: URINE BILIRUBIN NEGATIVE (NEGATIVE); URINE BLOOD 3+ (NEGATIVE); URINE COLOR Yellow (YELLOW); URINE GLUCOSE (UA) NORMAL (Normal); URINE KETONE NEGATIVE (NEGATIVE); URINE LEUKOCYTE ESTERASE NEG Leu/uL (Negative); URINE PROTEIN 1+ mg/dL (NEGATIVE); URINE UROBILINOGEN NORMAL mg/dL (0.2-1.0); WBC URINE < 1 /hpf (0-5)
[2017-06-17 04:02] VITALS: BP 137/86; PULSE 67; RESP 16; TEMP 98.1
[2017-06-17 06:04] VITALS: O2SAT 96
--- NOTE | 2017-06-17 11:46 | RAD ---
PROCEDURE: Radiographs of the right clavicle. HISTORY: trauma COMPARISON: None. FINDINGS: RIGHT CLAVICLE: A fracture of the distal clavicles appreciated with the major fracture fragment distracted cephalad 50 percent of the thickness of the clavicle. The acromioclavicular joint appears undisturbed. JOINTS: Right acromioclavicular and glenohumeral joints are grossly unremarkable. SOFT TISSUES: Grossly unremarkable. OTHER FINDINGS: None. IMPRESSION: Distal right clavicle fracture with cephalad distraction of the major fracture fragment as discussed above. No dislocation.
== END 2017-06-17 04:05 | disposition home or self-care (01) ==
LOC: C.ER 00:41
DX: S42.031G Displaced fracture of lateral end of right clavicle, subsequent encounter for fracture with delayed healing (principal); W18.30XD Fall on same level, unspecified, subsequent encounter; F10.10 Alcohol abuse, uncomplicated; Y90.9 Presence of alcohol in blood, level not specified
CPT/HCPCS: 73000; 81001; 84703; 99284; G0480

== ENCOUNTER 2017-10-29 23:11 | Emergency (ER) | payer MEDICAID, OTHER ==
[2017-10-29 23:11] VITALS: BMI 31.8
[2017-10-29 23:26] VITALS: BP 117/83; PULSE 92; RESP 20; TEMP 98.3; O2SAT 97
== END 2017-10-29 23:53 | disposition left against medical advice (07) ==
LOC: C.ER 23:11
DX: Z02.89 Encounter for other administrative examinations (principal); R10.9 Unspecified abdominal pain

== ENCOUNTER 2018-08-10 05:40 | Inpatient (IN) | payer MEDICAID, OTHER ==
[2018-08-10 05:41] VITALS: BMI 67.8
[2018-08-10] MEDS ORDERED: Sodium Chloride 0.9% 2,000 ML IV ONE (06:11)
--- NOTE | 2018-08-10 06:12 | C.PDOC ---
History Of Present Illness 32 year old female with PMHx of gastritis to the ED c/o vomiting for the past 4 days and occasional diarrhea. Patient reports recurrent symptoms feel similar to prior episodes. Patient reports she is not taking any GI medications. Patient states past admissions for hypokalemia and projectile vomiting. Patient states she has past history of PCP and alcohol abuse. Patient denies fever, chills, abdominal pain, CP, SOB, rash, weakness, numbness. <Shirley Damon - Last Filed: 08/10/18 06:38> History Per: Patient History/Exam Limitations: no limitations Onset/Duration Of Symptoms: Days (4) Current Symptoms Are (Timing): Still Present Quality Of Discomfort: "Pain" Associated Symptoms: Vomiting, Diarrhea Recent travel outside of the [place]: No Additional History Per: Patient Abnormal Vaginal Bleeding: No <Shirley Damon - Last Filed: 08/10/18 06:38> <Marlena Mott - Last Filed: 08/10/18 10:17> Time Seen by Provider: 08/10/18 05:56 Chief Complaint (Nursing): Abdominal Pain Past Medical History Reviewed: Historical Data, Nursing Documentation, Vital Signs Vital Signs: Last Vital Signs Temp 98.2 F 08/10/18 05:47 Pulse 90 08/10/18 05:47 Resp 16 08/10/18 05:47 BP 147/90 08/10/18 05:47 Pulse Ox 96 08/10/18 05:47 - Medical History PMH: Anxiety, Gastritis Denies: Diabetes, Hepatitis, HIV, HTN, Chronic Kidney Disease, Seizures, Sexually Transmitted Disease Surgical History: No Surg Hx Family History: States: Unknown Family Hx - Social History Hx Alcohol Use: Yes Hx Substance Use: Yes (PCP(06/12/17)) - Immunization History Hx Tetanus Toxoid Vaccination: No Hx Influenza Vaccination: No Hx Pneumococcal Vaccination: No <Shirley Damon - Last Filed: 08/10/18 06:38> Vital Signs: Last Vital Signs Temp 98.2 F 08/10/18 05:47 Pulse 90 08/10/18 05:47 Resp 16 08/10/18 05:47 BP 147/90 08/10/18 05:47 Pulse Ox 96 08/10/18 06:39 <Marlena Mott - Last Filed: 08/10/18 10:17> Review Of Systems Constitutional: Negative for: Fever, Chills Cardiovascular: Negative for: Chest Pain Respiratory: Negative for: Shortness of Breath Gastrointestinal: Positive for: Vomiting, Diarrhea Genitourinary: Negative for: Dysuria Skin: Negative for: Rash Neurological: Negative for: Weakness, Numbness, Headache <Shirley Damon [facility] Filed: 08/10/18 06:38> Physical Exam - Physical Exam Appears: Non-toxic, No Acute Distress Skin: Normal Color, Warm, Dry Head: Atraumatic, Normacephalic Eye(s): bilateral: Normal Inspection Oral Mucosa: Moist Neck: Normal ROM, Supple Chest: Symmetrical Cardiovascular: Rhythm Regular Respiratory: Normal Breath Sounds, No Rales, No Rhonchi, No Wheezing Gastrointestinal/Abdominal: Soft, No Tenderness, No Guarding, No Rebound Extremity: Normal ROM, No Tenderness, No Swelling Neurological/Psych: Oriented x3, Normal Speech, Normal Cognition, Other (no gross intoxication, calms, cooperative) Gait: Steady <Shirley Damon Filed: 08/10/18 06:38> ED Course And Treatment O2 Sat by Pulse Oximetry: 96 (On RA) Pulse Ox Interpretation: Normal <Shirley Damon [facility] Filed: 08/10/18 06:38> - Laboratory Results Result Diagrams: 08/10/18 06:27 08/10/18 06:27 Lab Results: Total Bilirubin 1.5 mg/dL (0.2-1.3) H 08/10/18 06:27 AST 186 U/L (14-36) H 08/10/18 06:27 ALT 77 U/L (9-52) H D 08/10/18 06:27 Alkaline Phosphatase 140 U/L (38-126) H D 08/10/18 06:27 Total Protein 9.4 g/dL (6.3-8.3) H 08/10/18 06:27 Albumin 5.2 g/dL (3.5-5.0) H D 08/10/18 06:27 Globulin 4.2 gm/dL (2.2-3.9) H 08/10/18 06:27 Albumin/Globulin Ratio 1.2 (1.0-2.1) 08/10/18 06:27 Lipase 147 U/L (23-300) 08/10/18 06:27 <Marlena Mott - Last Filed: 08/10/18 10:17> Medical Decision Making Medical Decision Making: Plan: * Labs * Pepcid 20 mg IVP * IV fluids * Zofran 4 mg IVP <Shirley Damon Last Filed: 08/10/18 06:38> Disposition - Disposition Disposition Time: 07:00 <Shirley Damon Filed: 08/10/18 06:38> <Marlena Mott - Last Filed: 08/10/18 10:17> - Disposition Condition: STABLE Forms: [employer] (Greek) - Clinical Impression Clinical Impression: Vomiting, Gastritis - Scribe Statement The provider has reviewed the documentation as recorded by the Scribe Rony Vasquez All medical record entries made by the Scribe were at my direction and personally dictated by me. I have reviewed the chart and agree that the record accurately reflects my personal performance of the history, physical exam, medical decision making, and the department course for this patient. I have also personally directed, reviewed, and agree with the discharge instructions and disposition. <hSirley Damon - Filed: 08/10/18 06:38> Physician Patient Turnover Patient Signed Over To: Marlena Mott Handoff Comments: fu labs, dispo <Shirley Damon Filed: 08/10/18 06:38> Addendum Addendum: 08/10/18 Dr. Mott Notes: HPI: This patient was endorsed to me by Dr. Damon at the end of their shift. Pending labs, re-evaluation, and disposition. 32 year old female with a history of polysubstance abuse presents to the ED complaining of gastritis pain associated with nausea and vomiting for 3 days. The patient she is not able to keep food down. She denies fever, chills and any other associated symptoms. PE: Appears: Non-toxic, No Acute Distress, afebrile, conversational, cooperative Skin: Warm, Dry, No Rash Head: Atraumatic, Normacephalic Eye(s): bilateral: Normal Inspection Oral Mucosa: Moist Neck: Normal ROM Chest: Symmetrical Cardiovascular: Rhythm Regular, No Murmur Respiratory: Normal Breath Sounds, No Rales, No Rhonchi, No Wheezing Gastrointestinal/Abdominal: Soft, No Tenderness, No Guarding, abd obese Extremity: Bilateral: Atraumatic, Normal Color and Temperature Neurological/Psych: Oriented x3, Normal Speech Plan: An obstructive series was ordered, possibly shows ascites. Will order a CT non-contrast, pending results. CT Results: Findings: LUNG BASES ARE CLEAR. NO PLEURAL OR PERICARDIAL EFFUSION. PROMINENT LIVER MEASURING UP TO 26 CENTIMETERS IN LENGTH. DIFFUSE FATTY INFILTRATION. DISTENDED GALLBLADDER WITH A SUGGESTION OF POSSIBLE SLUDGE. CLINICAL CORRELATION. CORRELATION WITH RIGHT UPPER QUADRANT ABDOMINAL ULTRASOUND MAY BE HELPFUL IF CLINICALLY INDICATED. SPLEEN IS PRESERVED. ADRENAL GLANDS ARE PRESERVED. PANCREAS IS PRESERVED. SMALL HIATAL HERNIA. RIGHT KIDNEY: NO CALCULI OR HYDRONEPHROSIS. LEFT KIDNEY: NO CALCULI OR HYDRONEPHROSIS. MILDLY THICK-WALLED AND OR MILDLY UNDERDISTENDED URINARY BLADDER. HETEROGENEOUS UTERUS. MILD THICKENING OF THE RIGHT HEMICOLON WHICH MAY REPRESENT MILD ACUTE INFECTIOUS AND OR INFLAMMATORY CHANGES. CLINICAL CORRELATION. UNDER DISTENDED DESCENDING COLON. APPENDIX IS WITHIN NORMAL LIMITS. FEW SHOTTY PARA-AORTIC AND INGUINAL LYMPH NODES. FEW SHOTTY MESENTERIC LYMPH NODES. SMALL MIDLINE FAT CONTAINING UMBILICAL HERNIA. DEGENERATIVE CHANGES IN THE SPINE. SCLEROSIS OF THE BILATERAL SI JOINTS. LEFT GLUTEAL CALCIFICATIONS. IMPRESSION: 1. MILD THICKENING OF THE RIGHT HEMICOLON WHICH MAY REPRESENT MILD ACUTE INFECTIOUS AND OR INFLAMMATORY CHANGES. CLINICAL CORRELATION. UNDER DISTENDED DESCENDING COLON. 2. PROMINENT LIVER MEASURING UP TO 26 CENTIMETERS IN LENGTH. DIFFUSE FATTY INFILTRATION. 3. DISTENDED GALLBLADDER WITH A SUGGESTION OF POSSIBLE SLUDGE. CLINICAL CORRELATION. CORRELATION WITH RIGHT UPPER QUADRANT ABDOMINAL ULTRASOUND MAY BE HELPFUL IF CLINICALLY INDICATED. 4. SMALL HIATAL HERNIA. 5. MILDLY THICK-WALLED AND OR MILDLY UNDERDISTENDED URINARY BLADDER. Statement: All medical record entries made by the Scribe (Bianca Souza) were at my direction and personally dictated by me. I have reviewed the chart and agree that the record accurately reflects my personal performance of the history, physical exam, medical decision making, and the department course for this patient. I have also personally directed, reviewed, and agree with the discharge instructions and disposition. <Marlena Mott - Last Filed: 08/10/18 10:17>
[2018-08-10 06:30] LABS: BASO % 0.5 % (0.0-2.0); EOS % 0.1 % (0.0-4.0); HEMOGLOBIN 13.4 g/dL (11.0-16.0); LYMPH % 13.1 % (20.0-40.0); MEAN CELL VOLUME 98.2 fL (81.0-99.0); MEAN CORPUSCULAR HEMOGLOBIN 32.8 pg (27.0-31.0); MEAN CORPUSCULAR HGB CONC 33.4 g/dL (33.0-37.0); MEAN PLATELET VOLUME 9.8 fL (7.2-11.7); MONO # 0.7 K/uL (0.0-0.8); MONO % 9.1 % (0.0-10.0); NEUT % 77.2 % (50.0-75.0); RBC 4.08 Mil/uL (3.80-5.20); RED CELL DISTRIBUTION WIDTH 13.6 % (11.5-14.5); WHITE BLOOD COUNT 7.8 K/uL (4.8-10.8)
[2018-08-10] MEDS ORDERED: Sodium Chloride 0.9% 1,000 ML ONE ×2 (06:31→12:07)
[2018-08-10 06:42] LABS: BLOOD UREA NITROGEN 10 mg/dL (7-17); CALCIUM 9.7 mg/dl (8.6-10.4); GFR NON-AFRICAN AMERICAN > 60; LIPASE 147 U/L (23-300)
[2018-08-10 06:44] LABS: ALB/GLOB RATIO 1.2 (1.0-2.1); ALBUMIN 5.2 g/dL (3.5-5.0); ALT/SGPT 77 U/L (9-52); AST/SGOT 186 U/L (14-36)
--- NOTE | 2018-08-10 09:42 | CT ---
CT abdomen and pelvis HISTORY: Abdominal pain. Evaluate for ascites. Comparison: 05/18/2017 Technique: Multiple contiguous axial images were through the abdomen and pelvis without the use of intravenous contrast. Subsequently, sagittal and coronal reformatted images were obtained. Findings: LUNG BASES ARE CLEAR. NO PLEURAL OR PERICARDIAL EFFUSION. PROMINENT LIVER MEASURING UP TO 26 CENTIMETERS IN LENGTH. DIFFUSE FATTY INFILTRATION. DISTENDED GALLBLADDER WITH A SUGGESTION OF POSSIBLE SLUDGE. CLINICAL CORRELATION. CORRELATION WITH RIGHT UPPER QUADRANT ABDOMINAL ULTRASOUND MAY BE HELPFUL IF CLINICALLY INDICATED. SPLEEN IS PRESERVED. ADRENAL GLANDS ARE PRESERVED. PANCREAS IS PRESERVED. SMALL HIATAL HERNIA. RIGHT KIDNEY: NO CALCULI OR HYDRONEPHROSIS. LEFT KIDNEY: NO CALCULI OR HYDRONEPHROSIS. MILDLY THICK-WALLED AND OR MILDLY UNDERDISTENDED URINARY BLADDER. HETEROGENEOUS UTERUS. MILD THICKENING OF THE RIGHT HEMICOLON WHICH MAY REPRESENT MILD ACUTE INFECTIOUS AND OR INFLAMMATORY CHANGES. CLINICAL CORRELATION. UNDER DISTENDED DESCENDING COLON. APPENDIX IS WITHIN NORMAL LIMITS. FEW SHOTTY PARA-AORTIC AND INGUINAL LYMPH NODES. FEW SHOTTY MESENTERIC LYMPH NODES. SMALL MIDLINE FAT CONTAINING UMBILICAL HERNIA. DEGENERATIVE CHANGES IN THE SPINE. SCLEROSIS OF THE BILATERAL SI JOINTS. LEFT GLUTEAL CALCIFICATIONS. IMPRESSION: 1. MILD THICKENING OF THE RIGHT HEMICOLON WHICH MAY REPRESENT MILD ACUTE INFECTIOUS AND OR INFLAMMATORY CHANGES. CLINICAL CORRELATION. UNDER DISTENDED DESCENDING COLON. 2. PROMINENT LIVER MEASURING UP TO 26 CENTIMETERS IN LENGTH. DIFFUSE FATTY INFILTRATION. 3. DISTENDED GALLBLADDER WITH A SUGGESTION OF POSSIBLE SLUDGE. CLINICAL CORRELATION. CORRELATION WITH RIGHT UPPER QUADRANT ABDOMINAL ULTRASOUND MAY BE HELPFUL IF CLINICALLY INDICATED. 4. SMALL HIATAL HERNIA. 5. MILDLY THICK-WALLED AND OR MILDLY UNDERDISTENDED URINARY BLADDER.
--- NOTE | 2018-08-10 11:06 | CP.PCM.HP ---
<Chante Xie - Last Filed: 08/10/18 19:49> History of Present Illness - History of Present Illness History of Present Illness: PGY-1 Chante Xie D.O. H&P for Dr. Gomes's service: Patient is a 32 yo female with history of gastritis and polysubstance use presenting to the ED for 4 days of vomiting and abdominal pain. She reports a vomiting episode every 30 minutes and describes in as clear yellow in color. She reports last eating 3 days ago as she has not been able to hold any food down. Patient complains of chest pain and SOB when she is wretching. She also reports chills, dizziness, and diffuse abdominal pain. She did not do anything or take any medications to help her symptoms. Patient has had similar episodes in the past and has been admitted to the hospital multiple times for hypokalemia and projectile vomiting. Patient denies fever, rash, weakness, hemoptysis, melena, hematochezia, dysuria, or urinary frequency. 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, lives with godmother in apartment Alcohol- 10 beers/day for multiple years, never completed a detox program,longest period of alcohol abstinence was 10 days Tobacco- 5 cigarettes/day since the age of 17, has not smoked for the past week Drugs- smokes marijuana 2x/week, uses PCP occasionally (last used 2 months ago), uses cocaine occasionally (last used 1 month ago), denies IVDA PMD: none Present on Admission - Present on Admission Any Indicators Present on Admission: No History of DVT/PE: No History of Uncontrolled Diabetes: No Urinary Catheter: No Decubitus Ulcer Present: No History Surgical Site Infection Following: None Review of Systems - Constitutional Constitutional: Chills. absent: Fever, Headache, Weight Loss - EENT Eyes: absent: Change in Vision Ears: absent: Decreased Hearing Nose/Mouth/Throat: absent: Nasal Congestion, Sore Throat - Cardiovascular Cardiovascular: As Per HPI. absent: Chest Pain, Orthopnea, Palpitations - Respiratory Respiratory: absent: Cough, Dyspnea - Gastrointestinal Gastrointestinal: Abdominal Pain (R-sided), Diarrhea (occasional), Nausea, Vomiting. absent: Constipation, Dysphagia, Hematemesis - Genitourinary Genitourinary: absent: Dysuria, Hematuria - Musculoskeletal Musculoskeletal: absent: Arthralgias, Myalgias, Numbness, Tingling - Integumentary Integumentary: absent: Lesions - Neurological Neurological: Dizziness, Tremor, Weakness. absent: Focal Weakness, Sensory Deficit - Psychiatric Psychiatric: Anxiety - Endocrine Endocrine: absent: Fatigue, Palpitations - Hematologic/Lymphatic Hematologic: absent: Easy Bleeding, Easy Bruising, Lymphadenopathy Past Patient History - Infectious Disease Hx of Infectious Diseases: None - Past Medical History & Family History Past Medical History?: No Pertinent Family History: mother and father- HIV positive grandmother- colon CA - Past Social History Smoking Status: Heavy Smoker > 10 Cigarettes Daily Chewing Tobacco Use: No Cigar Use: No Alcohol: > 2 Drinks/Day Drugs: Cannabis, Cocaine, Other (PCP) Home Situation {Lives}: With Family (godmother) - CARDIAC Hx Hypertension: No - PULMONARY Hx Tuberculosis: No - NEUROLOGICAL Hx Seizures: No - HEENT Hx HEENT Problems: No - RENAL Hx Chronic Kidney Disease: No - ENDOCRINE/METABOLIC Hx Endocrine Disorders: No - HEMATOLOGICAL/ONCOLOGICAL Hx Human Immunodeficiency Virus (HIV): No - INTEGUMENTARY Hx Dermatological Problems: No - MUSCULOSKELETAL/RHEUMATOLOGICAL Hx Falls: No - GASTROINTESTINAL Hx Gastritis: Yes - GENITOURINARY/GYNECOLOGICAL Hx Sexually Transmitted Disorders: No - PSYCHIATRIC Hx Anxiety: Yes Hx Substance Use: Yes (PCP(06/12/17)) - SURGICAL HISTORY Hx Surgeries: Yes Other/Comment: .2006 - ANESTHESIA Hx Anesthesia: Yes Hx Anesthesia Reactions: No Hx Malignant Hyperthermia: No Meds Allergies/Adverse Reactions: Allergies Allergy/AdvReac Type Severity Reaction Status Date / Time pantoprazole [From Protonix] Allergy Verified 10/29/17 23:26 Physical Exam - Constitutional Appears: In Acute Distress (actively vomiting) - Head Exam Head Exam: ATRAUMATIC, NORMAL INSPECTION - Eye Exam Eye Exam: EOMI, Normal appearance, PERRL - ENT Exam ENT Exam: Mucous Membranes Dry - Neck Exam Neck exam: Positive for: Normal Inspection - Respiratory Exam Respiratory Exam: Clear to Auscultation Bilateral, NORMAL BREATHING PATTERN. absent: Respiratory Distress - Cardiovascular Exam Cardiovascular Exam: RRR, +S1, +S2 - GI/Abdominal Exam GI & Abdominal Exam: Normal Bowel Sounds, Soft, Tenderness (diffuse). absent: Distended - Extremities Exam Extremities exam: Positive for: normal inspection - Back Exam Back exam: NORMAL INSPECTION - Neurological Exam Neurological exam: Alert, CN II-XII Intact, Oriented x3 - Psychiatric Exam Psychiatric exam: Anxious - Skin Skin Exam: Dry, Normal Color, Warm Results - Vital Signs Recent Vital Signs: Last Vital Signs Temp 98.2 F 08/10/18 05:47 Pulse 90 08/10/18 05:47 Resp 16 08/10/18 05:47 BP 147/90 08/10/18 05:47 Pulse Ox 96 08/10/18 06:39 - Labs Result Diagrams: 08/10/18 06:27 08/10/18 06:27 Labs: Laboratory Results - last 24 hr 08/10/18 08/10/18 08/10/18 06:27 06:27 06:27 WBC 7.8 RBC 4.08 Hgb 13.4 Hct 40.1 MCV 98.2 MCH 32.8 H MCHC 33.4 RDW 13.6 Plt Count 182 MPV 9.8 Neut % (Auto) 77.2 H Lymph % (Auto) 13.1 L Sharkey % (Auto) 9.1 Eos % (Auto) 0.1 Baso % (Auto) 0.5 Neut # (Auto) 6.0 Lymph # (Auto) 1.0 Sharkey # (Auto) 0.7 Eos # (Auto) 0.0 Baso # (Auto) 0.0 Sodium 135 Potassium 4.8 Chloride 96 L Carbon Dioxide 24 Anion Gap 19 BUN 10 Creatinine 0.6 L Est GFR ( Amer) > 60 Est GFR (Non-Af Amer) > 60 Random Glucose 114 H D Calcium 9.7 Total Bilirubin 1.5 H AST 186 H ALT 77 H D Alkaline Phosphatase 140 H D Total Protein 9.4 H Albumin 5.2 H D Globulin 4.2 H Albumin/Globulin Ratio 1.2 Lipase 147 Alcohol, Quantitative < 10 Assessment & Plan - Assessment and Plan (Free Text) Assessment: Patient is a 32 yo female with a history of polysubstance use and gastritis who presented with intractable nausea, vomiting, and abdominal pain. Plan: Intractable nausea, vomiting, abdominal pain - Afebrile, no leukocytosis - Lipase 147 - AXR: no obstruction - CT A/P: Mild thickening of R hemicolon- infectious vs inflammatory change. Underdistended descending colon. Prominent liver up to 26 cm, diffuse fatty infiltrate. Distended GB, possible sludge. Small hiatal hernia - Abd US: Limited study secondary to noncooperative patient. Hepatomegaly with diffuse increased echogenicity of the hepatic parenchymal cortex suggestive for fatty infiltration versus hepatic parenchymal disease. - NPO - NS @ 100 - Pepcid 20 mg IV Q12H - Zofran 4 mg IV Q4H PRN - Replete electrolytes PRN Polysubstance use disorder - BAL <10 - UDS positive for cocaine, cannabinoids - CIWA - Ativan 1 mg IV Q3H PRN Transaminitis- 2/2 alcohol use - Hepatitis panel negative - HIV pending - Monitor LFTs - Avoid hepatotoxic agents Ppx: VTE: SCDs GI: Pepcid 20 mg IV Q12H Code status: full code Case discussed with attending, Dr. Gomes. <Michael Gomes - Last Filed: 08/11/18 07:26> Results - Vital Signs Recent Vital Signs: Last Vital Signs Temp 98.2 F 08/10/18 23:51 Pulse 91 H 08/10/18 23:51 Resp 20 08/10/18 23:51 BP 144/85 08/10/18 23:51 Pulse Ox 97 08/10/18 23:51 - Labs Result Diagrams: 08/10/18 06:27 08/10/18 06:27 Labs: Laboratory Results - last 24 hr 08/10/18 08/10/18 12:02 13:13 Urine Opiates Screen Negative Urine Methadone Screen Negative Ur Barbiturates Screen Negative Ur Phencyclidine Scrn Negative Ur Amphetamines Screen Negative U Benzodiazepines Scrn Negative U Oth Cocaine Metabols Positive H U Cannabinoids Screen Positive H Hepatitis A IgM Ab Negative Hep Bs Antigen Negative Hep B Core IgM Ab Negative Hepatitis C Antibody Negative Attending/Attestation - Attestation I have personally seen and examined this patient.: Yes I have fully participated in the care of the patient.: Yes I have reviewed all pertinent clinical information: Yes Notes (Text): 08/11/18 07:22 Medical attending: Patient was seen and examined by me in the ER. We came judd powell in the morning but she was away at at study and then I returned later at noon time. The patient has a very concerning history of poly-substance abuse. She is not forthwright with what she tells me. She tells the resident that she takes cocaine however when I came and saw her she denied this. The UDS was done. The patient was pending ultrasound of the abdomen and pelvis as the CT had suggest gall bladder issues as well as gall bladder sludge. She also uses a lot of alcohol since the age of 17 - will start on ativan IV for the time being Michael Gomes
[2018-08-10] MEDS: Sodium Chloride 0.9% 1,000 ML IV SCH ×2 (12:11→22:49)
--- NOTE | 2018-08-10 12:35 | RAD ---
Abdomen four views HISTORY: Abdominal pain. Comparison: None available. Findings: No focal infiltrate or effusion. Heart size within normal. Few distended loops of small bowel in the mid lower abdomen. Fecal retention in the colon. No evidence of gross obstruction. Impression Unremarkable bowel gas pattern evidence obstruction. If pain persists, consider correlation with CT scan.
[2018-08-10 12:50] LABS: HEPATITIS B SURFACE AG Negative (NEGATIVE)
[2018-08-10 12:57] LABS: HEPATITIS A IGM NEGATIVE (NEGATIVE); HEPATITIS B CORE AB NEGATIVE (NEGATIVE)
[2018-08-10 13:08] LABS: HEPATITIS C ANTIBODY NEGATIVE (NEGATIVE)
--- NOTE | 2018-08-10 13:08 | US ---
Right upper quadrant abdominal ultrasound HISTORY: Right upper quadrant abdominal pain. CT scan dated 08/10/2018 Technique: Real-time sonography was performed through the right upper quadrant of the abdomen. Findings: Liver: 22.3 centimeters in length. Increased echogenicity of the hepatic parenchymal cortex suggestive for fatty infiltration versus hepatic parenchymal disease. Clinical correlation. Gallbladder: No gross calculi or sludge noted. Normal wall thickness of 2 millimeters. Negative sonographic Coker's sign. Common bile duct measures 4 millimeters, within normal limits. Limited visualization of the pancreas. Visualized aorta and IVC are preserved. Right kidney: 12.9 x 5.3 x 4.4 centimeters. No calculi or hydronephrosis. Impression: Limited study secondary to noncooperative patient. Hepatomegaly with diffuse increased echogenicity of the hepatic parenchymal cortex suggestive for fatty infiltration versus hepatic parenchymal disease. Clinical correlation. Limited visualization of the pancreas.
[2018-08-10 13:40] LABS: BARBITURATES, UR NEGATIVE (NEGATIVE); BENZODIAZEPINES, UR NEGATIVE (NEGATIVE); OPIATES, UR NEGATIVE (NEGATIVE); PHENCYCLIDINE, UR NEGATIVE (NEGATIVE)
[2018-08-10 23:56] VITALS: RESP 20
[2018-08-11] MEDS: Sodium Chloride 0.9% 1,000 ML IV SCH ×2 (07:15→17:44)
[2018-08-11 08:11] LABS: BASO % 0.3 % (0.0-2.0); EOS # 0.1 K/uL (0.0-0.7); EOS % 0.9 % (0.0-4.0); HEMOGLOBIN 12.5 g/dL (11.0-16.0); LYMPH # 1.2 K/uL (1.0-4.3); LYMPH % 15.6 % (20.0-40.0); MEAN CELL VOLUME 98.9 fL (81.0-99.0); MEAN CORPUSCULAR HEMOGLOBIN 32.7 pg (27.0-31.0); MEAN CORPUSCULAR HGB CONC 33.1 g/dL (33.0-37.0); MEAN PLATELET VOLUME 10.2 fL (7.2-11.7); MONO # 0.7 K/uL (0.0-0.8); MONO % 8.9 % (0.0-10.0); NEUT # 5.8 K/uL (1.8-7.0); NEUT % 74.3 % (50.0-75.0); RBC 3.82 Mil/uL (3.80-5.20); RED CELL DISTRIBUTION WIDTH 13.5 % (11.5-14.5); WHITE BLOOD COUNT 7.8 K/uL (4.8-10.8)
[2018-08-11 08:38] LABS: ALB/GLOB RATIO 1.3 (1.0-2.1); ALBUMIN 4.3 g/dL (3.5-5.0); ALT/SGPT 79 U/L (9-52); AST/SGOT 185 U/L (14-36); BLOOD UREA NITROGEN 10 mg/dL (7-17); CALCIUM 8.8 mg/dl (8.6-10.4); GFR NON-AFRICAN AMERICAN > 60
[2018-08-11] MEDS ORDERED: Potassium Chloride 20 mEq/15 ml LIQ UD PO ONE (09:11)
--- NOTE | 2018-08-11 14:31 | CP.PCM.PN ---
<Chante Xie - Last Filed: 08/11/18 17:18> Subjective - Date & Time of Evaluation Date of Evaluation: 08/11/18 Time of Evaluation: 07:29 - Subjective Subjective: PGY-1 Chante Xie D.O. Medicine progress note for Dr. Gomes's service: Patient was seen and examined this morning. She says she is feeling better. Has not vomited since yesterday afternoon. She is tolerating clear liquids. She endorses tremors/shaking. Denies fevers and chills. Denies diarrhea. C/o mild abdominal pain. Of note, security found alcohol in the patient's belongings. Objective - Vital Signs/Intake and Output Vital Signs (last 24 hours): Temp Pulse Resp BP Pulse Ox 98.1 F 68 20 122/77 99 08/11/18 08:00 08/11/18 08:00 08/11/18 08:00 08/11/18 08:00 08/11/18 08:00 Intake and Output: 08/11/18 08/11/18 06:59 18:59 Intake Total 800 Balance 800 - Medications Medications: Current Medications Famotidine (Pepcid) 20 mg IVP Q12 [facility] Last Admin: 08/11/18 09:25 Dose: 20 mg Sodium Chloride (Sodium Chloride 0.9%) 1,000 mls @ 100 mls/hr IV .Q10H [facility] Last Admin: 08/10/18 22:49 Dose: 100 mls/hr Lorazepam (Ativan) 1 mg IVP Q4H [facility] Ondansetron HCl (Zofran Inj) 4 mg IVP Q4H PRN PRN Reason: Nausea/Vomiting Last Admin: 08/11/18 00:18 Dose: 4 mg - Labs Labs: 08/11/18 07:46 08/11/18 07:44 - Constitutional Appears: No Acute Distress, Unkempt - Head Exam Head Exam: ATRAUMATIC, NORMAL INSPECTION - Eye Exam Eye Exam: EOMI, Normal appearance - ENT Exam ENT Exam: Mucous Membranes Moist - Neck Exam Neck Exam: Normal Inspection - Respiratory Exam Respiratory Exam: Clear to Ausculation Bilateral, NORMAL BREATHING PATTERN. absent: Respiratory Distress - Cardiovascular Exam Cardiovascular Exam: RRR, +S1, +S2. absent: Tachycardia - GI/Abdominal Exam GI & Abdominal Exam: Soft, Tenderness (mild diffuse). absent: Distended - Extremities Exam Extremities Exam: Normal Inspection - Back Exam Back Exam: NORMAL INSPECTION - Neurological Exam Neurological Exam: Alert, Awake, Oriented x3 Additional comments: b/l arm tremors - Psychiatric Exam Psychiatric exam: Normal Affect, Normal Mood - Skin Skin Exam: Dry, Normal Color, Warm Assessment and Plan - Assessment and Plan (Free Text) Assessment: Patient is a 32 yo female with a history of polysubstance use and gastritis who presented with intractable nausea, vomiting, and abdominal pain. Symptoms are resolving. Treating for alcohol withdrawal with Ativan taper. Plan: Intractable nausea, vomiting, abdominal pain, improving - Afebrile, no leukocytosis - Lipase 147 - AXR: no obstruction - CT A/P: Mild thickening of R hemicolon- infectious vs inflammatory change. Underdistended descending colon. Prominent liver up to 26 cm, diffuse fatty infiltrate. Distended GB, possible sludge. Small hiatal hernia - Abd US: Limited study secondary to noncooperative patient. Hepatomegaly with diffuse increased echogenicity of the hepatic parenchymal cortex suggestive for fatty infiltration versus hepatic parenchymal disease. - ADAT - NS @ 100 - Pepcid 20 mg IV Q12H - Zofran 4 mg IV Q4H PRN - Replete electrolytes PRN Polysubstance use disorder, chronic - BAL <10 - UDS positive for cocaine, cannabinoids - CIWA (1, 1, 9)- b/l UE tremors - Decrease Ativan to 1 mg IV Q4H Transaminitis, stable- 2/2 alcohol use - Hepatitis panel negative - HIV pending - Monitor LFTs - Avoid hepatotoxic agents Ppx: VTE: SCDs GI: Pepcid 20 mg IV Q12H Code status: full code Case discussed with attending, Dr. Gomes. <Michael Gomes - Last Filed: 08/11/18 18:51> Objective - Vital Signs/Intake and Output Vital Signs (last 24 hours): Temp Pulse Resp BP Pulse Ox 98.5 F 86 20 117/79 93 L 08/11/18 16:00 08/11/18 16:00 08/11/18 16:00 08/11/18 16:00 08/11/18 16:00 Intake and Output: 08/11/18 08/11/18 06:59 18:59 Intake Total 800 1040 Balance 800 1040 - Medications Medications: Current Medications Famotidine (Pepcid) 20 mg IVP Q12 [facility] Last Admin: 08/11/18 09:25 Dose: 20 mg Sodium Chloride (Sodium Chloride 0.9%) 1,000 mls @ 100 mls/hr IV .Q10H [facility] Last Admin: 08/11/18 17:44 Dose: 100 mls/hr Lorazepam (Ativan) 1 mg IVP Q4H [facility] Last Admin: 08/11/18 17:43 Dose: 1 mg Ondansetron HCl (Zofran Inj) 4 mg IVP Q4H PRN PRN Reason: Nausea/Vomiting Last Admin: 08/11/18 00:18 Dose: 4 mg - Labs Labs: 08/11/18 07:46 08/11/18 07:44 Attending/Attestation - Attestation I have personally seen and examined this patient.: Yes I have fully participated in the care of the patient.: Yes I have reviewed all pertinent clinical information, including history, physical exam and plan: Yes
[2018-08-12] MEDS: Sodium Chloride 0.9% 1,000 ML IV SCH ×3 (03:15→13:58)
[2018-08-12 07:23] LABS: BASO % 0.5 % (0.0-2.0); EOS # 0.1 K/uL (0.0-0.7); EOS % 1.9 % (0.0-4.0); HEMOGLOBIN 12.5 g/dL (11.0-16.0); LYMPH # 1.1 K/uL (1.0-4.3); LYMPH % 14.6 % (20.0-40.0); MEAN CELL VOLUME 98.7 fL (81.0-99.0); MEAN CORPUSCULAR HEMOGLOBIN 32.6 pg (27.0-31.0); MEAN PLATELET VOLUME 10.3 fL (7.2-11.7); MONO # 0.6 K/uL (0.0-0.8); MONO % 8.1 % (0.0-10.0); NEUT # 5.5 K/uL (1.8-7.0); NEUT % 74.9 % (50.0-75.0); NRBC % 0.1 % (0.0-2.0); RBC 3.84 Mil/uL (3.80-5.20); RED CELL DISTRIBUTION WIDTH 13.3 % (11.5-14.5); WHITE BLOOD COUNT 7.3 K/uL (4.8-10.8)
[2018-08-12 07:42] LABS: ALB/GLOB RATIO 1.3 (1.0-2.1); ALBUMIN 4.2 g/dL (3.5-5.0); ALT/SGPT 114 U/L (9-52); AST/SGOT 227 U/L (14-36); BLOOD UREA NITROGEN 7 mg/dL (7-17); CALCIUM 8.5 mg/dl (8.6-10.4); GFR NON-AFRICAN AMERICAN > 60
--- NOTE | 2018-08-12 08:48 | CP.PCM.PN ---
<Aiden Crum - Last Filed: 08/12/18 13:19> Subjective - Date & Time of Evaluation Date of Evaluation: 08/12/18 Time of Evaluation: 08:48 - Subjective Subjective: PGY1 Progress Note for Dr. Sarabia Patient was seen and evaluated at bedside this morning. No acute events overnight. Today, Patient complaints of dry cough that is new. Patient also admits to 1 episode of non-bloody vomitus, but is feeling better and denies nausea currently. Patient was able to have bowel movement and is tolerating diet without complaints. Patient otherwise denies chest pain, shortness of breath, headache, abdominal pain, numbness/tingling, dizziness, fever, chills. Objective - Vital Signs/Intake and Output Vital Signs (last 24 hours): Temp Pulse Resp BP Pulse Ox 98.1 F 78 20 129/86 95 08/12/18 08:09 08/12/18 08:09 08/12/18 08:09 08/12/18 08:09 08/12/18 08:09 Intake and Output: 08/12/18 08/12/18 06:59 18:59 Intake Total 1000 Balance 1000 - Medications Medications: Current Medications Famotidine (Pepcid) 20 mg IVP Q12 [facility] Last Admin: 08/11/18 21:21 Dose: 20 mg Sodium Chloride (Sodium Chloride 0.9%) 1,000 mls @ 100 mls/hr IV .Q10H [facility] Last Admin: 08/12/18 06:41 Dose: 100 mls/hr Magnesium Sulfate/Dextrose (Magnesium Sulfate 1 Gm/100 Ml D5w) 1 gm in 100 mls @ 300 mls/hr IVPB Q30M [facility] Stop: 08/12/18 09:34 Lorazepam (Ativan) 1 mg IVP Q6H [facility] Last Admin: 08/12/18 02:44 Dose: 1 mg Ondansetron HCl (Zofran Inj) 4 mg IVP Q4H PRN PRN Reason: Nausea/Vomiting Last Admin: 08/12/18 02:44 Dose: 4 mg Potassium Chloride (K-Dur 20 Meq Er Tab) 40 meq PO STAT STA Stop: 08/12/18 08:39 Potassium Phos/Sodium Phos (Neutra-Phos) 1 pkt PO STAT STA Stop: 08/12/18 08:40 - Labs Labs: 08/12/18 07:09 08/12/18 07:09 - Additional Findings Additional findings: - Constitutional Appears: No Acute Distress, Unkempt - Head Exam Head Exam: ATRAUMATIC, NORMAL INSPECTION - Eye Exam Eye Exam: EOMI, Normal appearance - ENT Exam ENT Exam: Mucous Membranes Moist - Neck Exam Neck Exam: Normal Inspection - Respiratory Exam Respiratory Exam: Clear to Ausculation Bilateral, NORMAL BREATHING PATTERN. absent: Respiratory Distress - Cardiovascular Exam Cardiovascular Exam: RRR, +S1, +S2. absent: Tachycardia - GI/Abdominal Exam GI & Abdominal Exam: Soft, Non-tender. absent: Distended - Extremities Exam Extremities Exam: Normal Inspection - Back Exam Back Exam: NORMAL INSPECTION - Neurological Exam Neurological Exam: Alert, Awake, Oriented x3 Additional comments: No tremors bilaterally - Psychiatric Exam Psychiatric exam: Normal Affect, Normal Mood - Skin Skin Exam: Dry, Normal Color, Warm Assessment and Plan - Assessment and Plan (Free Text) Assessment: Patient is a 32 yo female with a history of polysubstance use and gastritis who presented with intractable nausea, vomiting, and abdominal pain. Symptoms are resolving. Treating for alcohol withdrawal with Ativan taper. Plan: Intractable nausea, vomiting, abdominal pain, improving - Afebrile, no leukocytosis - Lipase 147 - Abdominal X-Ray 08/10: no obstruction - CT A/P 08/10: Mild thickening of R hemicolon- infectious vs inflammatory change. Underdistended descending colon. Prominent liver up to 26 cm, diffuse fatty infiltrate. Distended GB, possible sludge. Small hiatal hernia - Abd US: Limited study secondary to noncooperative patient. Hepatomegaly with diffuse increased echogenicity of the hepatic parenchymal cortex suggestive for fatty infiltration versus hepatic parenchymal disease. - Continue NS @ 100 - Continue Pepcid 20 mg IV Q12H - Continue Zofran 4 mg IV Q4H PRN - Replete electrolytes as needed Non-Productive Cough, Rule-Out Aspiration Pneumonia - Aspiration precautions - CXR obtained 08/12: Mild venous congestions. pathcy increased markings in the right infrahilar region and left lung base. Nodular density at the left lung base may represent confluence of shadows with ribs and vessels. Correlation with lateral view may be helpful, per official report. Tortuous aorta. Polysubstance use disorder, chronic - BAL <10 - UDS positive for cocaine, cannabinoids - CIWA (1, 1, 9,9); tremors improved - Changed Ativan to 1 mg IV Q4H to Ativan IV to 1mg PO PRN Transaminitis - Secondary to alcohol use - Hepatitis panel negative - HIV negative - Monitor LFTs AST increased from 185 --> 227 (08/12) ALT increased from 79 --> 114 (08/12) - Continue to avoid hepatotoxic agents Ppx: VTE: SCDs GI: Pepcid 20 mg IV Q12H Code status: full code Patient seen and case discussed in detail with Dr. No Crum PGY1 <Cody Sarabia - Last Filed: 08/14/18 17:03> Objective - Vital Signs/Intake and Output Vital Signs (last 24 hours): Temp Pulse Resp BP Pulse Ox 98.2 F 87 20 134/63 95 08/13/18 09:05 08/13/18 09:05 08/13/18 09:05 08/13/18 09:05 08/13/18 09:05 - Labs Labs: 08/13/18 08:13 08/13/18 08:13 Attending/Attestation - Attestation I have personally seen and examined this patient.: Yes I have fully participated in the care of the patient.: Yes I have reviewed all pertinent clinical information, including history, physical exam and plan: Yes Notes (Text): Seen and examined by me. Patient was complaining of nausea,s/p vomiting,symptoms are improving I agree with the resident's documentation we will continue hydration follow psychiatrist recommendation 1.vomiting 2.substance abuse 3.transaminitis 4.cough repeat chest x ray
[2018-08-12] MEDS ORDERED: Potassium Chloride 20 mEq ER Tab PO ONE (09:00)
[2018-08-12] MEDS ORDERED: Potassium & Sodium Phosphate PO ONE (09:00)
[2018-08-12] MEDS: Magnesium Sulfate 1 gm in D5W 1 GM/100 ML BAG IVPB SCH ×2 (09:41→09:44)
--- NOTE | 2018-08-12 10:42 | RAD ---
Chest x-ray single frontal view HISTORY: Cough. COMPARISON: 01/30/2016 Findings: Mild venous congestion. Patchy increased markings in the right infrahilar region and left lung base. Nodular density at the left lung base may represent confluence of shadows with ribs and vessels. Correlation with lateral view may be helpful. Tortuous aorta. Degenerative changes in the spine. Impression: Mild venous congestion. Patchy increased markings in the right infrahilar region and left lung base. Nodular density at the left lung base may represent confluence of shadows with ribs and vessels. Correlation with lateral view may be helpful. Tortuous aorta.
[2018-08-13] MEDS: Sodium Chloride 0.9% 1,000 ML IV SCH ×2 (00:15→09:12)
--- NOTE | 2018-08-13 07:55 | CP.PCM.PN ---
Subjective - Date & Time of Evaluation Date of Evaluation: 08/13/18 Time of Evaluation: 07:52 - Subjective Subjective: PGY1 Medicine Progress Note for Dr. Sarabia Patient evaluated and examined at bedside. No acute overnight events overnight. Patient denies chest pain, shortness of breath, abdominal pain, fever, chills, nausea/vomiting, and/or headache. Patient states she is interested in being evaluated by Psychiatry to address her alcohol misuse. Objective - Vital Signs/Intake and Output Vital Signs (last 24 hours): Temp Pulse Resp BP Pulse Ox 98 F 73 20 118/79 99 08/13/18 00:00 08/13/18 00:00 08/13/18 00:00 08/13/18 00:00 08/13/18 00:00 - Medications Medications: Current Medications Famotidine (Pepcid) 20 mg IVP Q12 [facility] Last Admin: 08/12/18 21:49 Dose: 20 mg Sodium Chloride (Sodium Chloride 0.9%) 1,000 mls @ 100 mls/hr IV .Q10H [facility] Last Admin: 08/13/18 00:15 Dose: Not Given Lorazepam (Ativan) 1 mg PO TID PRN PRN Reason: Agitation Last Admin: 08/13/18 07:26 Dose: 1 mg Ondansetron HCl (Zofran Inj) 4 mg IVP Q4H PRN PRN Reason: Nausea/Vomiting Last Admin: 08/13/18 07:27 Dose: 4 mg - Labs Labs: 08/12/18 07:09 08/12/18 07:09 - Additional Findings Additional findings: - Constitutional Appears: No Acute Distress, Unkempt - Head Exam Head Exam: ATRAUMATIC, NORMAL INSPECTION - Eye Exam Eye Exam: EOMI, Normal appearance - ENT Exam ENT Exam: Mucous Membranes Moist - Neck Exam Neck Exam: Normal Inspection - Respiratory Exam Respiratory Exam: Clear to Ausculation Bilateral, NORMAL BREATHING PATTERN. ab sent: Respiratory Distress - Cardiovascular Exam Cardiovascular Exam: RRR, +S1, +S2. absent: Tachycardia - GI/Abdominal Exam GI & Abdominal Exam: Soft, Non-tender. absent: Distended - Extremities Exam Extremities Exam: Normal Inspection - Back Exam Back Exam: NORMAL INSPECTION - Neurological Exam Neurological Exam: Alert, Awake, Oriented x3 Additional comments: No tremors bilaterally - Psychiatric Exam Psychiatric exam: Normal Affect, Normal Mood - Skin Skin Exam: Dry, Normal Color, Warm Assessment and Plan - Assessment and Plan (Free Text) Assessment: Patient is a 32 yo female with a history of polysubstance use and gastritis who presented with intractable nausea, vomiting, and abdominal pain. Symptoms are resolving. Treating for alcohol withdrawal with Ativan taper. Plan: Intractable nausea, vomiting, abdominal pain, improving - Afebrile, no leukocytosis - Lipase 147 - Abdominal X-Ray 08/10: no obstruction - CT A/P 08/10: Mild thickening of R hemicolon- infectious vs inflammatory change. Underdistended descending colon. Prominent liver up to 26 cm, diffuse fatty infiltrate. Distended GB, possible sludge. Small hiatal hernia - Abd US: Limited study secondary to noncooperative patient. Hepatomegaly with diffuse increased echogenicity of the hepatic parenchymal cortex suggestive for fatty infiltration versus hepatic parenchymal disease. - Continue NS @ 100 - Continue Pepcid 20 mg IV Q12H - Continue Zofran 4 mg IV Q4H PRN - Replete electrolytes as needed Non-Productive Cough, Rule-Out Aspiration Pneumonia - Aspiration precautions - CXR obtained 08/12: Mild venous congestions. pathcy increased markings in the right infrahilar region and left lung base. Nodular density at the left lung base may represent confluence of shadows with ribs and vessels. Correlation with lateral view may be helpful, per official report. Tortuous aorta. Polysubstance use disorder, chronic - Psychiatry consulted; recommendations appreciated - BAL <10 - UDS positive for cocaine, cannabinoids - CIWA (1, 1, 9,9); tremors improved - Changed Ativan to 1 mg IV Q4H to Ativan IV to 1mg PO PRN Transaminitis - Secondary to alcohol use - Hepatitis panel negative - HIV negative - Monitor LFTs AST increased from 185 --> 227 (08/12) ALT increased from 79 --> 114 (08/12) - Continue to avoid hepatotoxic agents Ppx: VTE: SCDs GI: Pepcid 20 mg IV Q12H Code status: full code Patient seen and case discussed in detail with Dr. No Crum PGY1
[2018-08-13 08:19] LABS: BASO # 0.1 K/uL (0.0-0.2); BASO % 0.8 % (0.0-2.0); EOS # 0.2 K/uL (0.0-0.7); EOS % 2.7 % (0.0-4.0); LYMPH # 1.5 K/uL (1.0-4.3); MEAN CELL VOLUME 99.2 fL (81.0-99.0); MEAN CORPUSCULAR HEMOGLOBIN 32.9 pg (27.0-31.0); MEAN CORPUSCULAR HGB CONC 33.1 g/dL (33.0-37.0); MEAN PLATELET VOLUME 10.7 fL (7.2-11.7); MONO # 0.8 K/uL (0.0-0.8); MONO % 9.7 % (0.0-10.0); NEUT # 5.4 K/uL (1.8-7.0); NEUT % 67.8 % (50.0-75.0); NRBC % 0.1 % (0.0-2.0); RBC 3.65 Mil/uL (3.80-5.20); RED CELL DISTRIBUTION WIDTH 13.3 % (11.5-14.5); WHITE BLOOD COUNT 7.9 K/uL (4.8-10.8)
[2018-08-13 08:55] LABS: ALB/GLOB RATIO 1.3 (1.0-2.1); ALT/SGPT 131 U/L (9-52); AST/SGOT 235 U/L (14-36); BLOOD UREA NITROGEN 7 mg/dL (7-17); CALCIUM 8.3 mg/dl (8.6-10.4); GFR NON-AFRICAN AMERICAN > 60
[2018-08-13 09:06] VITALS: BP 134/63; PULSE 87; TEMP 98.2; O2SAT 95
--- NOTE | 2018-08-13 10:48 | PCM.PSYCH ---
Initial Psychiatric Evaluation - Initial Psychiatric Evaluation Type of Admission: Voluntary Legal Status: Capacity Chief Complaint (in patient's own words): I was drinking.' History of Present Illness and Precipitating Events: Patient is 33 year old female that presented to the [facility] [place] ED on 08/10 and was admitted for vomitting and abdominal pain. Psychiatry was consulted for evaluation of alcohol abuse disorder. Patient denies any prior history of psychiatric illnesses or hospitalizations. On examination patient was pleasant and well kempt. Patient reports history of smoking 5 cigarettes daily for 15 years, marijuana use twice a week, occasional cocaine and PCP use, and drinking a 6 pack of beer daily. She commented that she had previous sobriety periods, with her longest being 3 months. In response to the CAGE questionaire, patient commented that she has felt the need to cut down on her drinking previously, that she has felt annoyed/aggitated when her mother broached her drinking with her, and that she felt guilty about her drinking when she lost her last job due to missed days. However, she denied the need for an eye proof inspector. Patient expressed a desire to seek professional counseling for her various problem in life but not specific to alcohol. Patient denies feelings of hopelessness and helplessness. She denies any irritability,agitation, or any manic symptoms. She denies any auditory or visual hallucinations. She denies any suicidal ideation or homicidal ideation. Current Medications: Active Medications Generic Name Dose Route Start Last Admin Trade Name Freq PRN Reason Stop Dose Admin Famotidine 20 mg 08/10/18 22:00 08/13/18 09:12 Pepcid IVP 20 mg Q12 MARCELLUS Administration Sodium Chloride 1,000 mls @ 100 mls/hr 08/10/18 11:15 08/13/18 09:12 Sodium Chloride 0.9% IV 100 mls/hr .Q10H [facility]CELLUS Administration Lorazepam 1 mg 08/12/18 13:28 08/13/18 07:26 Ativan PO 1 mg TID PRN Administration Agitation Ondansetron HCl 4 mg 08/10/18 11:15 08/13/18 07:27 Zofran Inj IVP 4 mg Q4H PRN Administration Nausea/Vomiting Past Psychiatric History - Past Psychiatric History Previous Treatment History: None Pertinent Medical Hx (Current Medical&Sleep Prob, Allergies): Allergies Allergy/AdvReac Type Severity Reaction Status Date / Time pantoprazole [From Protonix] Allergy Verified 10/29/17 23:26 No Known Home Med 08/10/18 Review of Systems - Review of Systems All systems: reviewed and no additional remarkable complaints except - Psychiatric Psychiatric: Anxiety, Irritability. absent: Suicidal Ideation Mental Status Examination - Personal Presentation Personal Presentation: Looks stated age - Affect Affect: Constricted - Motor Activity Motor Activity: Calm - Reliability in Providing Information Reliability in Providing Information: Fair - Speech Speech: Organized - Mood Mood: Anxious - Formal Thought Process Formal Thought Process: No Impairment - Obsessions/Compulsions Obsessions: No Compulsions: No - Cognitive Functions Orientation: Person, Place, Situation, Time Sensorium: Alert Attention/Concentration: Attentive Abstract Thinking: [place] Estimate of Intelligence: Below average Judgement: Imparied, as evidence by: Poor judgement, Intact, as evidence by: Insight regarding need for hospitalization - Risk Risk: Diminished functioning - Limitations Limitations: Living alone DSM 5 DX - DSM 5 DSM 5 Diagnosis: Alcohol use disorder severe Alcohol withdrawal - Recommended/Plan of Treatment Treatment Recommendations and Plan of Treatment: Pt psychiatrically stable and clear for discharge.
[2018-08-13] MEDS ORDERED: Iodixanol 320 mg/ml 150 ml Bottle IV ONE (11:47)
--- NOTE | 2018-08-13 13:46 | CT ---
Date of service: 08/13/2018 CT chest with IV contrast Indication: abnormal chest x-ray; rule-out lung pathology Technique: Contiguous axial images were obtained through the chest with intravenous contrast enhancement. Sagittal and coronal reconstructions were generated and reviewed. This CT exam was performed using 1 or more of the following dose reduction techniques: Automated exposure control, adjustment of the MAA and/or kV according to patient size, and/or use of iterative reconstruction technique. IV contrast: 100 mL Visipaque 320 IV Radiation dose (DLP): 817.25 MGy-cm. Comparison: Chest x-ray performed 08/12/18 Findings: Visualized portions of the inferior thyroid gland appear unremarkable. The mediastinal and hilar vascular structures appear within normal limits. The heart appears within normal limits of size. Subtle scattered regions of air trapping most prominent within the mid to lower lobes. No focal consolidation. No pleural effusion. No pneumothorax. No suspicious pulmonary nodules measuring greater than 5 mm. Limited visualization of the upper abdomen reveals hepatomegaly. Hypoattenuation of the liver compatible with hepatic steatosis. No acute osseous abnormality is detected. Impression: Nonspecific subtle scattered regions of air trapping most prominent in the mid to lower lobes. No focal consolidation, pleural effusion, or pneumothorax. Limited visualization of the upper abdomen reveals hepatomegaly. Hypoattenuation of the liver compatible with hepatic steatosis.
--- NOTE | 2018-08-13 14:20 | CP.PCM.DIS ---
Provider - Provider Date of Admission: 08/10/18 10:28 Attending physician: Michael Gomes DO Primary care physician: [facility] Physician Consults: 08/13/18 07:54 Physician Consult Routine Comment: Consulting Provider: Ganesh Hughes Consulting Physician: Ganesh Hughes Reason for Consult: alcohol dependence /abuse Time Spent in preparation of Discharge (in minutes): 45 Diagnosis - Discharge Diagnosis (1) Gastritis Status: Acute Priority: Medium (2) Vomiting Status: Acute Priority: Medium (3) Abdominal pain Status: Acute Priority: Medium (4) Alcohol abuse Status: Acute Priority: Medium (5) Alcohol use Status: Acute Priority: Medium Hospital Course - Lab Results Lab Results: Most Recent Lab Values WBC 7.9 K/uL (4.8-10.8) 08/13/18 08:13 RBC 3.65 Mil/uL (3.80-5.20) L 08/13/18 08:13 Hgb 12.0 g/dL (11.0-16.0) 08/13/18 08:13 Hct 36.2 % (34.0-47.0) 08/13/18 08:13 MCV 99.2 fL (81.0-99.0) H 08/13/18 08:13 MCH 32.9 pg (27.0-31.0) H 08/13/18 08:13 MCHC 33.1 g/dL (33.0-37.0) 08/13/18 08:13 RDW 13.3 % (11.5-14.5) 08/13/18 08:13 Plt Count 150 K/uL (130-400) 08/13/18 08:13 MPV 10.7 fL (7.2-11.7) 08/13/18 08:13 Neut % (Auto) 67.8 % (50.0-75.0) 08/13/18 08:13 Lymph % (Auto) 19.0 % (20.0-40.0) L 08/13/18 08:13 Cross % (Auto) 9.7 % (0.0-10.0) 08/13/18 08:13 Eos % (Auto) 2.7 % (0.0-4.0) 08/13/18 08:13 Baso % (Auto) 0.8 % (0.0-2.0) 08/13/18 08:13 Neut # (Auto) 5.4 K/uL (1.8-7.0) 08/13/18 08:13 Lymph # (Auto) 1.5 K/uL (1.0-4.3) 08/13/18 08:13 Cross # (Auto) 0.8 K/uL (0.0-0.8) 08/13/18 08:13 Eos # (Auto) 0.2 K/uL (0.0-0.7) 08/13/18 08:13 Baso # (Auto) 0.1 K/uL (0.0-0.2) 08/13/18 08:13 Sodium 132 mmol/L (132-148) 08/13/18 08:13 Potassium 3.7 mmol/L (3.6-5.2) 08/13/18 08:13 Chloride 99 mmol/L (98-107) 08/13/18 08:13 Carbon Dioxide 24 mmol/L (22-30) 08/13/18 08:13 Anion Gap 13 (10-20) 08/13/18 08:13 BUN 7 mg/dL (7-17) 08/13/18 08:13 Creatinine 0.5 mg/dL (0.7-1.2) L 08/13/18 08:13 Est GFR ( Amer) > 60 08/13/18 08:13 Est GFR (Non-Af Amer) > 60 08/13/18 08:13 Random Glucose 97 mg/dL (65-105) D 08/13/18 08:13 Calcium 8.3 mg/dl (8.6-10.4) L 08/13/18 08:13 Phosphorus 2.6 mg/dL (2.5-4.5) 08/13/18 08:13 Magnesium 1.6 mg/dL (1.6-2.3) 08/13/18 08:13 Total Bilirubin 0.8 mg/dL (0.2-1.3) 08/13/18 08:13 AST 235 U/L (14-36) H 08/13/18 08:13 ALT 131 U/L (9-52) H 08/13/18 08:13 Alkaline Phosphatase 98 U/L (38-126) 08/13/18 08:13 Total Protein 7.0 g/dL (6.3-8.3) 08/13/18 08:13 Albumin 4.0 g/dL (3.5-5.0) 08/13/18 08:13 Globulin 3.1 gm/dL (2.2-3.9) 08/13/18 08:13 Albumin/Globulin Ratio 1.3 (1.0-2.1) 08/13/18 08:13 Lipase 147 U/L (23-300) 08/10/18 06:27 Urine HCG, Qual Negative (NEGATIVE) 08/13/18 10:53 Urine Opiates Screen Negative (NEGATIVE) 08/10/18 13:13 Urine Methadone Screen Negative (NEGATIVE) 08/10/18 13:13 Ur Barbiturates Screen Negative (NEGATIVE) 08/10/18 13:13 Ur Phencyclidine Scrn Negative (NEGATIVE) 08/10/18 13:13 Ur Amphetamines Screen Negative (NEGATIVE) 08/10/18 13:13 U Benzodiazepines Scrn Negative (NEGATIVE) 08/10/18 13:13 U Oth Cocaine Metabols Positive (NEGATIVE) H 08/10/18 13:13 U Cannabinoids Screen Positive (NEGATIVE) H 08/10/18 13:13 Alcohol, Quantitative < 10 mg/dl (0-10) 08/10/18 06:27 Hepatitis A IgM Ab Negative (NEGATIVE) 08/10/18 12:02 Hep Bs Antigen Negative (NEGATIVE) 08/10/18 12:02 Hep B Core IgM Ab Negative (NEGATIVE) 08/10/18 12:02 Hepatitis C Antibody Negative (NEGATIVE) 08/10/18 12:02 HIV 1&2 Ag/Ab, 4th Gen Nonreactive (Nonreactive) 08/10/18 12:02 HIV 1&2 Antibody Screen Negative (NEGATIVE) 08/11/18 07:44 - Hospital Course Hospital Course: History of Present Illness (From History and Physical Exam Note) Patient is a 32 yo female with history of gastritis and polysubstance use presenting to the ED for 4 days of vomiting and abdominal pain. She reports a vomiting episode every 30 minutes and describes in as clear yellow in color. She reports last eating 3 days ago as she has not been able to hold any food down. Patient complains of chest pain and SOB when she is wretching. She also reports chills, dizziness, and diffuse abdominal pain. She did not do anything or take any medications to help her symptoms. Patient has had similar episodes in the past and has been admitted to the hospital multiple times for hypokalemia and projectile vomiting. Patient denies fever, rash, weakness, hemoptysis, melena, hematochezia, dysuria, or urinary frequency. Please see official report for complete summary of details. Patient was subsequently admitted for intractable abdominal pain and vomiting likely due to gastritis likely due to alcohol use disorder. Abdominal and Pelvis CT was obtained and revealed Mild thickening of R hemicolon- infectious vs inflammatory change. Underdistended descending colon. Prominent liver up to 26 cm, diffuse fatty infiltrate. Distended GB, possible sludge. Small hiatal hernia. Abdominal obstructive series x-ray was obtained and revealed no obstruction. Patient was treated with pepcid, zofran, and electrolytes were repleted as needed. Of note, Patient states she has 2 parents who are HIV positive. Thus HIV status was obtained and was negative. please see chart for details. On day 3 Patient Patient complained of cough. Chest x-ray was obtained and revealed Mild venous congestions. patchy increased markings in the right infrahilar region and left lung base. Nodular density at the left lung base may represent confluence of shadows with ribs and vessels. Correlation with lateral view may be helpful, per official report. This was followed-up with a CT of chest with contrast which was obtained on 08/13/18. Also on 08/13/18, Psychiatry was consulted for evaluation and treatment of alcohol use disorder and dependence, however prior to receiving the results of the CT scan of the chest the Patient decided to leave AGAINST MEDICAL ADVICE. Please see chart for more detail. The patient requested to sign out AGAINST MEDICAL ADVICE. This action is against my medical advice to the patient and the decision was made with informed refusal. The patient was told that further workup is necessary and a full explanation of the rationale was given. The risks of leaving were explained to the patient and include but are not limited to increased morbidity and mortality, , and worsening of known or unknown conditions. Patient was AAOX3 and was able to make this informed decision and understood the clinical situation and my explanation of the risks of leaving. The patient voluntarily accepted these risks and signed an AMA form documenting our conversation. The patient was given the opportunity ask questions and reconsider. The patient was encouraged to return to emergency room at any time for further care. She was advised to follow-up with her primary care doctor as soon as possible. Please see chart for more detail. Patient seen and case discussed in detail with Dr. No Crum PGY1 Discharge Exam - Additional Findings Additional findings: - Constitutional Appears: No Acute Distress, Unkempt - Head Exam Head Exam: ATRAUMATIC, NORMAL INSPECTION - Eye Exam Eye Exam: EOMI, Normal appearance - ENT Exam ENT Exam: Mucous Membranes Moist - Neck Exam Neck Exam: Normal Inspection - Respiratory Exam Respiratory Exam: Non-productive cough present. NORMAL BREATHING PATTERN. absent: Respiratory Distress - Cardiovascular Exam Cardiovascular Exam: RRR, +S1, +S2. absent: Tachycardia - GI/Abdominal Exam GI & Abdominal Exam: Soft, Non-tender. absent: Distended - Extremities Exam Extremities Exam: Normal Inspection - Back Exam Back Exam: NORMAL INSPECTION - Neurological Exam Neurological Exam: Alert, Awake, Oriented x3 Additional comments: No tremors bilaterally - Psychiatric Exam Psychiatric exam: Normal Affect, Normal Mood - Skin Skin Exam: Dry, Normal Color, Warm Discharge Plan - Follow Up Plan Condition: GUARDED Disposition: AGAINST MEDICAL ADVICE Instructions: Acute Abdominal Pain (DC), Acute Abdominal Pain (GEN) Additional Instructions: Patient signed out AGAINST MEDICAL ADVICE Patient was strongly advised to follow-up at the [facility] to review the results from the CT scan of her Chest. Patient was strongly advised complete smoking cessation. Patient was strongly advised to return to the ED immediately, should her symptoms persist or worsen.
== END 2018-08-13 14:52 | disposition left against medical advice (07) | DRG 241 ==
LOC: C.ER 05:40 → C.9E 10:28 → C.3T 20:22
PROVIDERS: ADMIT Hospitalist; ATTEND Hospitalist
PROC: HZ2ZZZZ Detoxification Services for Substance Abuse Treatment (ICD-10-PCS; principal; 2018-08-10)
DX: K29.20 Alcoholic gastritis without bleeding (principal); F10.230 Alcohol dependence with withdrawal, uncomplicated; F17.210 Nicotine dependence, cigarettes, uncomplicated; Y90.0 Blood alcohol level of less than 20 mg/100 ml; Z80.0 Family history of malignant neoplasm of digestive organs; F12.90 Cannabis use, unspecified, uncomplicated; F14.90 Cocaine use, unspecified, uncomplicated; F16.90 Hallucinogen use, unspecified, uncomplicated; R74.0 Nonspecific elevation of levels of transaminase and lactic acid dehydrogenase [LDH]; R05 Cough

== ENCOUNTER 2018-12-09 16:15 | Emergency (ER) | payer MEDICAID, OTHER ==
[2018-12-09 16:15] VITALS: BMI 67.8
[2018-12-09 16:26] VITALS: BP 176/113; PULSE 69; RESP 22; TEMP 98.3; O2SAT 99
--- NOTE | 2018-12-09 16:38 | C.PDOC ---
History Of Present Illness 33 yr old F w/ hx of anxiety, etoh abuse, gastritis p/w abdominal pain. Pt notes epigastric abdominal pain, throbbing. She notes pain feels exactly alike her previous gastritis. She denies any fall or trauma to her stomach. She notes the pain started after she drank some alcohol and has been intermittent in her epigastric area since then. She denies any other co-ingestion or drug usage. She denies taking any medication for the pain. No rash, fever, chills or night sweats. She notes burning chest pain after she vomited x1 yesterday, but no chest pain currently. She denies any constipation or diarrhea or dark or bloody stool. She notes feeling "dizzy" only after vomiting and denies any current dizziness. No other complaints. Time Seen by Provider: 12/09/18 16:38 Chief Complaint (Nursing): Abdominal Pain Past Medical History Vital Signs: Last Vital Signs Temp 98.3 F 12/09/18 16:23 Pulse 69 12/09/18 16:23 Resp 22 12/09/18 16:23 BP 176/113 H 12/09/18 16:23 Pulse Ox 99 12/09/18 16:23 Primary Care Provider: Non [facility] Provider, - Medical History PMH: Anxiety, Gastritis Denies: Diabetes, Hepatitis, HIV, HTN, Chronic Kidney Disease, Seizures, Sexually Transmitted Disease - [facility] Procedures DETOXIFICATION SERVICES FOR SUBSTANCE ABUSE TREATMENT (08/10/18) Family History: States: Unknown Family Hx - Social History Hx Alcohol Use: Yes Hx Substance Use: Yes (PCP(06/12/17)) - Immunization History Hx Tetanus Toxoid Vaccination: No Hx Influenza Vaccination: No Hx Pneumococcal Vaccination: No Review Of Systems Constitutional: Negative for: Fever, Chills, Sweats, Weakness, Malaise Eyes: Negative for: Pain, Vision Change, Conjunctivae Inflammation, Eyelid Inflammation ENT: Negative for: Ear Pain, Ear Discharge, Nose Pain, Nose Discharge, Nose Congestion, Mouth Pain Cardiovascular: Negative for: Chest Pain, Palpitations, Orthopnea, Edema, Light Headedness Respiratory: Negative for: Cough, Shortness of Breath, Hemoptysis, SOB with Excertion, Pleuritic Pain Gastrointestinal: Positive for: Nausea, Vomiting, Abdominal Pain. Negative for: Diarrhea, Constipation, Melena Genitourinary: Negative for: Dysuria, Frequency, Incontinence, Hematuria, Vaginal Discharge, Vaginal Bleeding, Pelvic Pain Musculoskeletal: Negative for: Neck Pain, Shoulder Pain, Arm Pain, Back Pain, Hand Pain Skin: Negative for: Rash, Lesions Neurological: Negative for: Weakness, Numbness, Headache, Dizziness Psych: Negative for: Anxiety, Depression, Psychosis Physical Exam - Physical Exam Appears: Well, Non-toxic, No Acute Distress Skin: Normal Color, Warm, Dry Head: Atraumatic, Normacephalic, No Tenderness Eye(s): bilateral: Normal Inspection, PERRL, EOMI Nose: Normal Gingiva: Normal Appearing Throat: Normal, No Erythema, No Exudate Neck: Normal, Normal ROM, Supple, Other (no meningeal signs) Lymphatic: No Adenopathy Cardiovascular: Rhythm Regular, No Murmur, No JVD Respiratory: Normal Breath Sounds, No Rales, No Rhonchi, No Stridor, No Wheezing Gastrointestinal/Abdominal: Soft, Tenderness (epigastric), No Organomegaly, No Mass, No Distention, No Guarding, No Rebound, No Hernia, Other (no ruq / rlq / periumiblical pain) Back: Normal Inspection, No CVA Tenderness, No Vertebral Tenderness Extremity: Normal ROM, No Tenderness Neurological/Psych: Oriented x3, Normal Speech, Normal Cognition Gait: Steady Extremity: Right: No Drift, Left: No Drift ED Course And Treatment - Laboratory Results Result Diagrams: 12/09/18 17:17 12/09/18 17:17 O2 Sat by Pulse Oximetry: 99 Medical Decision Making Medical Decision Makin yr old F w/ hx of anxiety, etoh abuse, gastritis p/w abdominal pain. Pt notes epigastric abdominal pain, throbbing. She notes pain feels exactly alike her previous gastritis. Likely alcoholic gastritis. No RLQ or RUQ or periumbilical pain. Negative murphys. No constipation or diarrhea or dark or bloody stool. Burning cp along midline after vomiting only. No sob. No signs of withdrawal on exam ek, nsr, no stemi 1856 repeat abd exam unremarkable, abd non-ttp tolerating clears labs reviewed, largely unremarkable LFTS elevated 2/2 etoh : alcoholic gastritis likely clear for d/c home with return indications and f/u pt agreeable to plan Disposition - Disposition Referrals: Lio Keen MD [Staff Provider] - [facility] [Outside] [facility] [Outside] [facility] [Outside] Disposition Time: 18:57 Condition: STABLE Additional Instructions: STOP DRINKING SO MUCH ALCOHOL. IT IS CAUSING GASTRITIS RONNY CORNEJO, thank you for letting us take care of you today. Your provider was Gaurav Fox and you were treated for CHEST PAIN/FATIGUE/VOMITTING. The emergency medical care you received today was directed at your acute symptoms. If you were prescribed any medication, please fill it and take as directed. It may take several days for your symptoms to resolve. Return to the Emergency Department if your symptoms worsen, do not improve, or if you have any other problems. Please contact your doctor or call one of the physicians/clinics you have been referred to that are listed on the Patient Visit Information form that is included in your discharge packet. Bring any paperwork you were given at [facility] with you along with any medications you are taking to your follow up visit. Our treatment cannot replace ongoing medical care by a primary care provider outside of the emergency department. Thank you for allowing the [facility] team to be part of your care today. If you had an X-Ray or CT scan: A Radiologist will review the ED reading if any change in treatment is needed we will contact you. If you had a blood, urine, or wound culture: It will take several days for the results, if any change in treatment is needed we will contact you. If you had an STI test: It will take 48 hours for the results. Please call after 1 week if you have not heard back. Instructions: Alcohol Use - When Is Drinking a Problem?, Gastritis (DC) Forms: [facility] (Macedonian) - Clinical Impression Clinical Impression: Alcoholic gastritis
[2018-12-09] MEDS ORDERED: Sodium Chloride 0.9% 1,000 ML IV ONE (16:59)
[2018-12-09 17:22] LABS: BASO % 0.5 % (0.0-2.0); EOS # 0.1 K/uL (0.0-0.7); EOS % 0.8 % (0.0-4.0); HEMOGLOBIN 13.6 g/dL (11.0-16.0); LYMPH # 0.9 K/uL (1.0-4.3); LYMPH % 11.6 % (20.0-40.0); MEAN CORPUSCULAR HEMOGLOBIN 32.5 pg (27.0-31.0); MEAN CORPUSCULAR HGB CONC 34.5 g/dL (33.0-37.0); MEAN PLATELET VOLUME 9.6 fL (7.2-11.7); MONO # 0.6 K/uL (0.0-0.8); MONO % 8.4 % (0.0-10.0); NEUT # 5.8 K/uL (1.8-7.0); NEUT % 78.7 % (50.0-75.0); RBC 4.17 Mil/uL (3.80-5.20); RED CELL DISTRIBUTION WIDTH 13.7 % (11.5-14.5); WHITE BLOOD COUNT 7.4 K/uL (4.8-10.8)
[2018-12-09 17:35] LABS: MEAN CELL VOLUME 94.4 fL (81.0-99.0)
[2018-12-09 17:36] LABS: ALB/GLOB RATIO 1.1 (1.0-2.1); ALBUMIN 4.8 g/dL (3.5-5.0); ALT/SGPT 61 U/L (9-52); AST/SGOT 103 U/L (14-36); BLOOD UREA NITROGEN 11 mg/dL (7-17); CALCIUM 10.4 mg/dl (8.6-10.4); GFR NON-AFRICAN AMERICAN > 60; LIPASE 114 U/L (23-300)
--- NOTE | 2018-12-09 19:18 | RAD ---
Date of service: 12/09/2018 HISTORY: cp after vomit COMPARISON: 08/12/2018 TECHNIQUE: Chest PA and lateral views FINDINGS: LUNGS: No active pulmonary disease. PLEURA: No significant pleural effusion identified. No pneumothorax apparent. CARDIOVASCULAR: No aortic atherosclerotic calcification present. Normal cardiac size. No pulmonary vascular congestion. OSSEOUS STRUCTURES: No significant abnormalities. VISUALIZED UPPER ABDOMEN: Normal. OTHER FINDINGS: None. IMPRESSION: No active disease.
--- NOTE | 2018-12-10 20:41 | CARD ---
APPROVED REPORT Date of service: 12/09/2018 EKG Measurement Heart [id number] <Conclusion> Normal sinus rhythm Normal ECG
== END 2018-12-09 19:21 | disposition home or self-care (01) ==
LOC: C.ER 16:15
DX: K29.20 Alcoholic gastritis without bleeding (principal)
CPT/HCPCS: 71046; 80053; 83690; 84702; 85025; 93005; 96361; 96374; 96375; 99284; J2405; J7030